=== PATIENT | female | born 1970 | race Caucasian/White ===

== ENCOUNTER 2017-02-07 11:24 | Observation (INO) | payer MEDICARE, MEDICAID ==
--- NOTE | 2017-02-07 12:12 | C.PDOC ---
History Of Present Illness 47 y/o female with Hx of HTN, DM and Fibromyalgia brought to ED by BLS with complaints of intermittent mid sternal chest pain and SOB for 2 days. Patient states she was at her physical therapist and reported she was not feeing well. Patient denies fever, chills, n/v/d or any other complaints at this time. Time Seen by Provider: 02/07/17 11:31 Chief Complaint (Nursing): Chest Pain History Per: Patient History/Exam Limitations: no limitations Onset/Duration Of Symptoms: Days Current Symptoms Are (Timing): Still Present Quality: Dull, Pressure Recent travel outside of the [place]: No Past Medical History Reviewed: Historical Data, Nursing Documentation, Vital Signs Vital Signs: Last Vital Signs Temp 98.5 F 02/07/17 16:35 Pulse 81 02/07/17 16:35 Resp 18 02/07/17 16:35 BP 127/89 02/07/17 16:35 Pulse Ox 95 02/07/17 16:35 - Medical History PMH: Diabetes, Fibromyalgia, HTN, Hypothyroidism, Mitral Valve Prolapse - Between Procedures APPLICATION OF SPLINT (02/27/14) Family History: States: Unknown Family Hx - Social History Hx Tobacco Use: No Hx Alcohol Use: No Hx Substance Use: No - Immunization History Hx Tetanus Toxoid Vaccination: No Hx Influenza Vaccination: Yes Hx Pneumococcal Vaccination: No Review Of Systems Except As Marked, All Systems Reviewed And Found Negative. Constitutional: Negative for: Fever, Chills Cardiovascular: Positive for: Chest Pain Respiratory: Positive for: Shortness of Breath Gastrointestinal: Negative for: Nausea, Vomiting, Diarrhea Physical Exam - Physical Exam Appears: Non-toxic, No Acute Distress Skin: Normal Color, Warm Head: Atraumatic, Normacephalic Oral Mucosa: Moist Neck: Normal ROM, Supple Chest: Symmetrical Cardiovascular: Rhythm Regular, No Murmur Respiratory: Normal Breath Sounds, No Rales, No Rhonchi, No Wheezing Gastrointestinal/Abdominal: Soft, No Tenderness, No Guarding, No Rebound Extremity: Normal ROM, Capillary Refill (<2 seconds) Neurological/Psych: Oriented x3, Normal Speech Gait: Steady ED Course And Treatment - Laboratory Results Result Diagrams: 02/07/17 12:03 02/07/17 12:03 Lab Interpretation: Normal ECG: Interpreted By Me ECG Rhythm: Sinus Rhythm ECG Interpretation: Normal Rate From EC O2 Sat by Pulse Oximetry: 100 (RA) Pulse Ox Interpretation: Normal - Other Rad CXR X-Ray: Interpreted by Me, Viewed By Me, Read By Radiologist Interpretation: HISTORY: SOB. COMPARISON: No prior. TECHNIQUE: Chest PA and lateral. FINDINGS: LUNGS: No active pulmonary disease. PLEURA: No significant pleural effusion identified. No pneumothorax apparent. CARDIOVASCULAR: Normal. OSSEOUS STRUCTURES: No significant abnormalities. VISUALIZED UPPER ABDOMEN: Normal. OTHER FINDINGS: None. IMPRESSION: No active disease. 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 - Scribe Statement The provider has reviewed the documentation as recorded by the Mioiblorin Gonzalez All medical record entries made by the Mioiblorin were at my direction and personally dictated by me. I have reviewed the chart and agree that the record accurately reflects my personal performance of the history, physical exam, medical decision making, and the department course for this patient. I have also personally directed, reviewed, and agree with the discharge instructions and disposition.
[2017-02-07 12:15] LABS: BASO # 0.1 K/uL (0.0-0.2); BASO % 0.6 % (0.0-2.0); EOS # 0.1 K/uL (0.0-0.7); EOS % 1.4 % (0.0-4.0); HEMOGLOBIN 11.4 g/dL (11.0-16.0); LYMPH # 3.6 K/uL (1.0-4.3); LYMPH % 37.6 % (20.0-40.0); MEAN CELL VOLUME 69.8 fL (81.0-99.0); MEAN CORPUSCULAR HEMOGLOBIN 22.4 pg (27.0-31.0); MEAN PLATELET VOLUME 8.8 fL (7.2-11.7); MONO # 0.7 K/uL (0.0-0.8); MONO % 7.2 % (0.0-10.0); NEUT # 5.1 K/uL (1.8-7.0); NEUT % 53.2 % (50.0-75.0); RBC 5.09 Mil/uL (3.80-5.20); RED CELL DISTRIBUTION WIDTH 22.4 % (11.5-14.5); WHITE BLOOD COUNT 9.7 K/uL (4.8-10.8)
[2017-02-07 12:30] LABS: ALBUMIN 3.6 g/dL (3.5-5.0)
[2017-02-07 12:32] LABS: GFR AFRICAN-AMERICAN > 60; GFR NON-AFRICAN AMERICAN > 60
[2017-02-07 12:33] LABS: ALB/GLOB RATIO 0.9 (1.0-2.1); ALT/SGPT 17 U/L (9-52); AST/SGOT 25 U/L (14-36); BLOOD UREA NITROGEN 7 mg/dL (7-17); CALCIUM 9.2 mg/dl (8.6-10.4); LIPASE 49 U/L (23-300)
[2017-02-07 12:38] LABS: CK-MB < 0.22 ng/mL (0.0-3.38)
--- NOTE | 2017-02-07 12:55 | RAD ---
HISTORY: SOB COMPARISON: No prior. TECHNIQUE: Chest PA and lateral FINDINGS: LUNGS: No active pulmonary disease. PLEURA: No significant pleural effusion identified. No pneumothorax apparent. CARDIOVASCULAR: Normal. OSSEOUS STRUCTURES: No significant abnormalities. VISUALIZED UPPER ABDOMEN: Normal. OTHER FINDINGS: None. IMPRESSION: No active disease.
[2017-02-07 13:06] LABS: SQUAMOUS EPITHIAL 37 /hpf (0-5); URINE BILIRUBIN NEGATIVE (NEGATIVE); URINE BLOOD NEGATIVE (NEGATIVE); URINE CLARITY Hazy (Clear); URINE COLOR Yellow (YELLOW); URINE GLUCOSE (UA) NORMAL (Normal); URINE LEUKOCYTE ESTERASE NEG Leu/uL (Negative); URINE NITRATE NEGATIVE (NEGATIVE); URINE PROTEIN NEGATIVE (NEGATIVE); URINE UROBILINOGEN NORMAL mg/dL (0.2-1.0)
[2017-02-07] MEDS ORDERED: Oxycodone/Acetaminophen 5/325 mg Tab PO PRN (20:55)
[2017-02-07] MEDS ORDERED: Albuterol 0.042% Inhal Sol (1.25 mg/3 mL) UD INH PRN (21:00)
[2017-02-07 21:26] LABS: CK-MB < 0.22 ng/mL (0.0-3.38)
[2017-02-08 04:20] LABS: BASO % 0.5 % (0.0-2.0); EOS # 0.1 K/uL (0.0-0.7); HEMOGLOBIN 11.1 g/dL (11.0-16.0); MEAN CORPUSCULAR HGB CONC 32.3 g/dL (33.0-37.0); MEAN PLATELET VOLUME 9.1 fL (7.2-11.7); NEUT # 4.9 K/uL (1.8-7.0); NRBC % 0.1 % (0.0-2.0); RBC 4.97 Mil/uL (3.80-5.20)
[2017-02-08 04:34] LABS: ALBUMIN 3.3 g/dL (3.5-5.0)
[2017-02-08 04:37] LABS: ALB/GLOB RATIO 0.9 (1.0-2.1); GFR AFRICAN-AMERICAN > 60; GFR NON-AFRICAN AMERICAN > 60
[2017-02-08 04:38] LABS: ALT/SGPT 18 U/L (9-52); AST/SGOT 22 U/L (14-36); BLOOD UREA NITROGEN 8 mg/dL (7-17); CALCIUM 8.9 mg/dl (8.6-10.4)
[2017-02-08 04:39] LABS: HDL CHOLESTEROL 39 mg/dL (30-70); MAGNESIUM 1.7 mg/dL (1.6-2.3)
[2017-02-08 04:42] LABS: BASO # 0.1 K/uL (0.0-0.2); EOS % 1.1 % (0.0-4.0); LYMPH # 4.7 K/uL (1.0-4.3); LYMPH % 44.8 % (20.0-40.0); MEAN CORPUSCULAR HEMOGLOBIN 22.3 pg (27.0-31.0); MONO # 0.7 K/uL (0.0-0.8); MONO % 6.5 % (0.0-10.0); NEUT % 47.1 % (50.0-75.0); RED CELL DISTRIBUTION WIDTH 21.6 % (11.5-14.5); WHITE BLOOD COUNT 10.4 K/uL (4.8-10.8)
[2017-02-08 04:49] LABS: CK-MB < 0.22 ng/mL (0.0-3.38); LDL CHOLESTEROL 115 mg/dL (0-129)
[2017-02-08] MEDS: Levothyroxine 75 MCG TAB PO SCH (06:10)
--- NOTE | 2017-02-08 11:12 | CP.PCM.PN ---
Subjective - Date & Time of Evaluation Date of Evaluation: 02/08/17 Time of Evaluation: 07:35 - Subjective Subjective: CC: chest pain x2 days, R calf pain x1 week HPI: 47 y/o female with PMHx of HTN, DM, Fibromyalgia, Hypothyroidism, Mitral Valve Prolapse - is brought to ED by BLS with complaints of intermittent mid sternal chest pain and SOB for 2 days. Most recently, patient states she was on her way to the physical therapist, walked 3 blocks, and experienced these symptoms while walking out of the elevator. The chest pain lasted several minutes, and subsided shortly after while resting. She denies radiation to her L arm or jaw. She states prior to these recent episodes, she could walk for miles without becoming SOB. She also admits to R calf tenderness that has been on/off for the past week. She attributes this to her PT sessions. Patient denies WARNER, change in vision, fevers, chills, n/v/d/c, LE edema, or any other complaints at this time. PMHx: HTN, DM, Fibromyalgia, Hypothyroidism, Mitral Valve Prolapse PSHx: herniated disks Allergy: ibuprofen, Penicillin, Tramadol Meds: see EMR FamHx- unknown SocHx- denies ETOH, tobacco, or illicit drug use Objective - Vital Signs/Intake and Output Vital Signs (last 24 hours): Temp Pulse Resp BP Pulse Ox 98.5 F 91 H 20 109/73 97 02/08/17 04:44 02/08/17 04:44 02/08/17 04:44 02/08/17 10:57 02/07/17 23:10 Intake and Output: 02/08/17 02/08/17 06:59 18:59 Intake Total 110 Balance 110 - Medications Medications: Current Medications Albuterol Sulfate (Albuterol 0.042% Inhal Nicolasa (1.25mg/3ml) Ud) 1.25 mg INH RQ6 PRN PRN Reason: Wheezing Amlodipine Besylate (Norvasc) 5 mg PO DAILY [facility] Last Admin: 02/08/17 10:56 Dose: 5 mg Aspirin (Aspirin Chewable) 81 mg PO DAILY [facility] Last Admin: 02/08/17 10:56 Dose: 81 mg Clopidogrel Bisulfate (Plavix) 75 mg PO DAILY [facility] Last Admin: 02/08/17 10:57 Dose: 75 mg Enalapril Maleate (Vasotec) 10 mg PO BID [facility] Last Admin: 02/08/17 10:57 Dose: 10 mg Gabapentin (Neurontin) 300 mg PO TID [facility] Last Admin: 02/08/17 10:56 Dose: 300 mg Heparin Sodium (Porcine) (Heparin) 5,000 units SC Q12H [facility] Last Admin: 02/08/17 10:57 Dose: 5,000 units Levothyroxine Sodium (Synthroid) 75 mcg PO DAILY@0630 [facility] Last Admin: 02/08/17 06:10 Dose: 75 mcg Metformin HCl (Glucophage) 500 mg PO BID [facility] Last Admin: 02/08/17 10:57 Dose: 500 mg Oxycodone/Acetaminophen (Percocet 5/325 Mg Tab) 1 tab PO Q8 PRN PRN Reason: Pain, moderate (4-7) Stop: 02/10/17 20:56 - Labs Labs: 02/08/17 04:45 02/08/17 04:11 - Constitutional Appears: Non-toxic, No Acute Distress - Head Exam Head Exam: ATRAUMATIC, NORMAL INSPECTION - Eye Exam Eye Exam: EOMI, Normal appearance - ENT Exam ENT Exam: Mucous Membranes Moist - Neck Exam Neck Exam: Full ROM. absent: Tenderness - Respiratory Exam Respiratory Exam: Clear to Ausculation Bilateral, NORMAL BREATHING PATTERN. absent: Chest Wall Tenderness, Rales, Rhonchi - Cardiovascular Exam Cardiovascular Exam: REGULAR RHYTHM, +S1, +S2 - GI/Abdominal Exam GI & Abdominal Exam: Soft, Normal Bowel Sounds. absent: Tenderness - Extremities Exam Extremities Exam: Normal Capillary Refill (R calf, increased tenderness with dorsiflexion), Tenderness. absent: Pedal Edema - Back Exam Back Exam: NORMAL INSPECTION. absent: CVA tenderness (L), CVA tenderness (R) - Neurological Exam Neurological Exam: Alert, Awake, CN II-XII Intact, Oriented x3 - Psychiatric Exam Psychiatric exam: Normal Affect, Normal Mood - Skin Skin Exam: Dry, Intact, Normal Color, Warm Assessment and Plan - Assessment and Plan (Free Text) Assessment: Chest Pain ASA 81 mg PO DAILY [facility] Plavix 75 mg PO DAILY [facility] Percocet 5/325 Mg Tab 1 tab PO Q8 PRN GRACE + EKG negative x3 f/u Echo cardiology consult, Dr. Askew, help appreciated. Calf Pain - Right suspect DVT DDimer 1316 H f/u LE US. HTN Norvasc 5 mg PO DAILY [facility] Vasotec 10 mg PO BID [facility] Dyspnea Albuterol Sulfate (Albuterol 0.042% Inhal Nicolasa (1.25mg/3ml) Ud) 1.25 mg INH RQ6 PRN Hypothyroidism Synthroid 75 mcg PO DAILY@0630 [facility] DM Neurontin 300 mg PO TID [facility] Glucophage 500 mg PO BID [facility] Prophylaxis Heparin 5,000 units SC Q12H [facility] Pepcid PO C/I SCDs until DVT ruled out
--- NOTE | 2017-02-08 21:39 | CP.PCM.CON ---
Past Patient History - Past Social History Smoking Status: Never Smoked - CARDIAC Hx Hypertension: Yes Hx Mitral Valve Prolapse: Yes - PULMONARY Hx Asthma: Yes - NEUROLOGICAL HX Cerebrovascular Accident: Yes (x2) - HEENT Hx HEENT Problems: No - RENAL Hx Chronic Kidney Disease: No - ENDOCRINE/METABOLIC Hx Hypothyroidism: Yes - HEMATOLOGICAL/ONCOLOGICAL Hx Blood Transfusions: No - INTEGUMENTARY Hx Dermatological Problems: No - MUSCULOSKELETAL/RHEUMATOLOGICAL Hx Falls: No Other/Comment: lupus - GASTROINTESTINAL Hx Gastrointestinal Disorders: No - GENITOURINARY/GYNECOLOGICAL Hx Genitourinary Disorders: No - PSYCHIATRIC Hx Depression: Yes Hx Substance Use: No - SURGICAL HISTORY Other/Comment: hernia surgery. - ANESTHESIA Hx Anesthesia: Yes Hx Anesthesia Reactions: No Hx Malignant Hyperthermia: No Has any member of the family had a problem w/ anesthesia?: No Meds Allergies/Adverse Reactions: Allergies Allergy/AdvReac Type Severity Reaction Status Date / Time ibuprofen Allergy Verified 02/07/17 11:31 Penicillins Allergy Verified 02/07/17 11:31 tramadol Allergy Verified 02/07/17 11:31 - Medications Medications: Current Medications Acetaminophen (Tylenol 325mg Tab) 650 mg PO Q6 PRN PRN Reason: Headache Last Admin: 02/08/17 16:48 Dose: 650 mg Albuterol Sulfate (Albuterol 0.042% Inhal Nicolasa (1.25mg/3ml) Ud) 1.25 mg INH RQ6 PRN PRN Reason: Wheezing Amlodipine Besylate (Norvasc) 5 mg PO DAILY [facility] Last Admin: 02/08/17 10:56 Dose: 5 mg Aspirin (Aspirin Chewable) 81 mg PO DAILY [facility] Last Admin: 02/08/17 10:56 Dose: 81 mg Clopidogrel Bisulfate (Plavix) 75 mg PO DAILY [facility] Last Admin: 02/08/17 10:57 Dose: 75 mg Enalapril Maleate (Vasotec) 10 mg PO BID [facility] Last Admin: 02/08/17 17:59 Dose: 10 mg Famotidine (Pepcid) 20 mg PO DAILY [facility] Gabapentin (Neurontin) 300 mg PO TID [facility] Last Admin: 02/08/17 17:59 Dose: 300 mg Heparin Sodium (Porcine) (Heparin) 5,000 units SC Q12H [facility] Last Admin: 02/08/17 10:57 Dose: 5,000 units Levothyroxine Sodium (Synthroid) 75 mcg PO DAILY@0630 [facility] Last Admin: 02/08/17 06:10 Dose: 75 mcg Metformin HCl (Glucophage) 500 mg PO BID [facility] Last Admin: 02/08/17 17:58 Dose: Not Given Oxycodone/Acetaminophen (Percocet 5/325 Mg Tab) 1 tab PO Q8 PRN PRN Reason: Pain, moderate (4-7) Stop: 02/10/17 20:56 Results - Vital Signs Recent Vital Signs: Last Vital Signs Temp 98.2 F 02/08/17 18:00 Pulse 90 02/08/17 18:00 Resp 20 02/08/17 18:00 BP 122/80 02/08/17 18:00 Pulse Ox 98 02/08/17 18:00 - Labs Result Diagrams: 02/08/17 04:45 02/08/17 04:11 Labs: Laboratory Results - last 24 hr 02/07/17 02/08/17 02/08/17 22:57 04:11 04:11 WBC RBC Hgb Hct MCV MCH MCHC RDW Plt Count MPV Neut % (Auto) Lymph % (Auto) [place] % (Auto) Eos % (Auto) Baso % (Auto) Neut # Lymph # [place] # Eos # Baso # Differential Comment D-Dimer, Quantitative Sodium 138 Potassium 3.8 Chloride 106 Carbon Dioxide 24 Anion Gap 12 BUN 8 Creatinine 0.8 Est GFR ( Amer) > 60 Est GFR (Non-Af Amer) > 60 POC Glucose (mg/dL) Random Glucose 100 Hemoglobin A1c 6.0 Calcium 8.9 Phosphorus 4.3 Magnesium 1.7 Total Bilirubin 0.5 AST 22 ALT 18 Alkaline Phosphatase 71 Total Creatine Kinase CK-MB (Mass) Troponin I, Quant Total Protein 7.1 Albumin 3.3 L Globulin 3.8 Albumin/Globulin Ratio 0.9 L Triglycerides 72 Cholesterol 176 LDL Cholesterol Direct 115 HDL Cholesterol 39 Free T4 TSH 3rd Generation 0.72 Urine HCG, Qual Negative 02/08/17 02/08/17 02/08/17 04:11 04:11 04:45 WBC 10.4 RBC 4.97 Hgb 11.1 Hct 34.3 MCV 69.0 L MCH 22.3 L MCHC 32.3 L RDW 21.6 H Plt Count 263 MPV 9.1 Neut % (Auto) 47.1 L Lymph % (Auto) 44.8 H [place] % (Auto) 6.5 Eos % (Auto) 1.1 Baso % (Auto) 0.5 Neut # 4.9 Lymph # 4.7 H [place] # 0.7 Eos # 0.1 Baso # 0.1 Differential Comment D-Dimer, Quantitative Sodium Potassium Chloride Carbon Dioxide Anion Gap BUN Creatinine Est GFR ( Amer) Est GFR (Non-Af Amer) POC Glucose (mg/dL) Random Glucose Hemoglobin A1c Calcium Phosphorus Magnesium Total Bilirubin AST ALT Alkaline Phosphatase Total Creatine Kinase 60 CK-MB (Mass) < 0.22 Troponin I, Quant < 0.0120 Total Protein Albumin Globulin Albumin/Globulin Ratio Triglycerides Cholesterol LDL Cholesterol Direct HDL Cholesterol Free T4 1.08 TSH 3rd Generation Urine HCG, Qual 02/08/17 02/08/17 02/08/17 06:11 11:20 11:55 WBC RBC Hgb Hct MCV MCH MCHC RDW Plt Count MPV Neut % (Auto) Lymph % (Auto) [place] % (Auto) Eos % (Auto) Baso % (Auto) Neut # Lymph # [place] # Eos # Baso # Differential Comment D-Dimer, Quantitative 1316 H Sodium Potassium Chloride Carbon Dioxide Anion Gap BUN Creatinine Est GFR ( Amer) Est GFR (Non-Af Amer) POC Glucose (mg/dL) 100 103 Random Glucose Hemoglobin A1c Calcium Phosphorus Magnesium Total Bilirubin AST ALT Alkaline Phosphatase Total Creatine Kinase CK-MB (Mass) Troponin I, Quant Total Protein Albumin Globulin Albumin/Globulin Ratio Triglycerides Cholesterol LDL Cholesterol Direct HDL Cholesterol Free T4 TSH 3rd Generation Urine HCG, Qual 02/08/17 02/08/17 16:10 21:09 WBC RBC Hgb Hct MCV MCH MCHC RDW Plt Count MPV Neut % (Auto) Lymph % (Auto) [place] % (Auto) Eos % (Auto) Baso % (Auto) Neut # Lymph # [place] # Eos # Baso # Differential Comment D-Dimer, Quantitative Sodium Potassium Chloride Carbon Dioxide Anion Gap BUN Creatinine Est GFR ( Amer) Est GFR (Non-Af Amer) POC Glucose (mg/dL) 96 117 H Random Glucose Hemoglobin A1c Calcium Phosphorus Magnesium Total Bilirubin AST ALT Alkaline Phosphatase Total Creatine Kinase CK-MB (Mass) Troponin I, Quant Total Protein Albumin Globulin Albumin/Globulin Ratio Triglycerides Cholesterol LDL Cholesterol Direct HDL Cholesterol Free T4 TSH 3rd Generation Urine HCG, Qual
[2017-02-09] MEDS: Levothyroxine 75 MCG TAB PO SCH (05:50)
--- NOTE | 2017-02-09 06:09 | CARD ---
APPROVED REPORT EXAM: Two-dimensional and M-mode echocardiogram with Doppler and color Doppler. INDICATION Dyspnea Chest Pain RISK FACTORS Hypertension Diabetes M-Mode DIMENSIONS RVDd2.03 (2.1-3.2cm)Left Atrium (MM)3.89 (2.5-4.0cm) IVSd0.94 (0.7-1.1cm)Aortic Root2.28 (2.2-3.7cm) LVDd4.46 (4.0-5.6cm)Aortic Cusp Exc.1.70 (1.5-2.0cm) PWd0.91 (0.7-1.1cm)FS (%) 28 % LVDs3.22 (2.0-3.8cm)LVEF (%)54 (>50%) Mitral Valve MV E Osxeshtn35.8cm/sMV A Ecaazgjw16.1cm/sE/A ratio0.9 TDI E/Lateral E'0.0E/Medial E'0.0 Tricuspid Valve TR Peak Jowzvvdg781jl/sTR Peak Gr.[id number] LEFT VENTRICLE The left ventricle is normal size. There is normal left ventricular wall thickness. The left ventricular function is normal. The left ventricular ejection fraction is within the normal range. The Ejection Fraction is >55%. No regional wall motion abnormalities noted. The left ventricular diastolic function is normal. No left ventricle thrombus noted on this study. There is no ventricular septal defect visualized. There is no left ventricular aneurysm. There is no mass noted in the left ventricle. RIGHT VENTRICLE The right ventricle is normal size. There is normal right ventricular wall thickness. The right ventricular systolic function is normal. ATRIA The left atrium size is normal. The right atrium size is normal. The interatrial septum is intact with no evidence for an atrial septal defect. AORTIC VALVE The aortic valve is normal in structure and function. No aortic regurgitation is present. There is no aortic valvular stenosis. There is no aortic valvular vegetation. MITRAL VALVE The mitral valve is normal in structure and function. There is no evidence of mitral valve prolapse. There is no mitral valve stenosis. There is no mitral valve regurgitation noted. TRICUSPID VALVE The tricuspid valve is normal in structure and function. There is trace tricuspid regurgitation. There is no tricuspid valve prolapse or vegetation. There is no tricuspid valve stenosis. PULMONIC VALVE The pulmonary valve is normal in structure and function. There is no pulmonic valvular regurgitation. There is no pulmonic valvular stenosis. GREAT VESSELS The aortic root is normal in size. The ascending aorta is normal in size. The pulmonary artery is normal. The IVC is normal in size and collapses >50% with inspiration. PERICARDIAL EFFUSION The pericardium appears normal. There is no pleural effusion. <Conclusion> The left ventricle is normal size. There is normal left ventricular wall thickness. The left ventricular ejection fraction is within the normal range. The Ejection Fraction is >55%. There is trace tricuspid regurgitation.
--- NOTE | 2017-02-09 06:38 | CARD ---
APPROVED REPORT EKG Measurement Heart [id number] <Conclusion> Sinus rhythm with blocked premature atrial complexes Otherwise normal ECG
[2017-02-09] MEDS ORDERED: Aminophylline 25 mg/ml Inj ONE (07:17)
[2017-02-09 07:37] LABS: BASO # 0.1 K/uL (0.0-0.2); BASO % 0.9 % (0.0-2.0); EOS # 0.1 K/uL (0.0-0.7); EOS % 1.4 % (0.0-4.0); HEMOGLOBIN 10.9 g/dL (11.0-16.0); LYMPH # 3.8 K/uL (1.0-4.3); LYMPH % 37.1 % (20.0-40.0); MEAN CELL VOLUME 69.3 fL (81.0-99.0); MEAN CORPUSCULAR HEMOGLOBIN 22.6 pg (27.0-31.0); MEAN CORPUSCULAR HGB CONC 32.6 g/dL (33.0-37.0); MONO % 9.5 % (0.0-10.0); NEUT # 5.2 K/uL (1.8-7.0); NEUT % 51.1 % (50.0-75.0); NRBC % 0.1 % (0.0-2.0); RBC 4.84 Mil/uL (3.80-5.20); RED CELL DISTRIBUTION WIDTH 22.5 % (11.5-14.5); WHITE BLOOD COUNT 10.2 K/uL (4.8-10.8)
[2017-02-09 08:19] LABS: ALBUMIN 3.3 g/dL (3.5-5.0)
[2017-02-09 08:22] LABS: ALB/GLOB RATIO 0.8 (1.0-2.1); AST/SGOT 29 U/L (14-36); GFR AFRICAN-AMERICAN > 60; GFR NON-AFRICAN AMERICAN > 60
[2017-02-09 08:23] LABS: ALT/SGPT 16 U/L (9-52); BLOOD UREA NITROGEN 10 mg/dL (7-17); MAGNESIUM 1.7 mg/dL (1.6-2.3)
[2017-02-09 11:22] VITALS: RESP 18
[2017-02-09] MEDS ORDERED: Lidocaine 5% Patch TD SCH (12:30)
--- NOTE | 2017-02-09 13:39 | CARD ---
APPROVED REPORT Protocol: LEXISCAN Test Type: LEXISCAN STRESS Test Indications: CP Target HR: 171 bpm Resting ECG: normal Resting Heart Rate: 91 bpm Resting Blood Pressure: 128/80mmHg submaximum (85%): 145 bpm TEST SUMMARY PREINFSNHYPERV.31:[id number]/80.0. INFUSIONDOSE 100:300.00.01.093/.0. [id number]/80.0. PROCEDURE Pharmacologic stress testing was performed using 0.4mg per 5ml of regadenoson given intravenously over 7-10 seconds. POST EXERCISE Reason for Termination: Lexiscan protocol completed Target HR: No Max HR: 93 bpm 76% of Maximum Predicted HR: 171 bpm Exercise duration: 00:30 min:sec, 0 Stage Exercise capacity: 1.0METs Max Blood Pressure: 128/80mmHg Blood Pressure response to exercise: normal resting BP - appropriate response Heart Rate response to exercise: appropriate Chest Pain: No, none Angina index: 0 Arrhythmia: No, none ST Change: No, none Deviation: 0 mm INTERPRETATION Stress EKG Conclusion: Nuclear report to follow EXAM: Myocardial Perfusion REST/STRESS Imaging Protocol The imaging protocol used to acquire images was Rest Tc-99m/stress Tc-99m 1 day Rest Spect myocardial perfusion imaging was performed in supine position 45 minutes following the injection of 13 mCi of Tc-99 Myoview. Gated Stress Spect was performed 43 minutes after intravenous 30.9 mCi Tc-99 Myoview injection. The images were gated to evaluate regional wall motion and calculate ventricular ejection fraction.Images were reconstructed using backfilter projection method in short horizontal and verticle long axis. Spect slices were generated. RESTING DATA EDV73.82qxTT7.70L/min ESV30.00mlMyocardial Nlaj183.00g Av. Heart Rate87.00bpm EF59.00% STRESS DATA EDV70.59nwOC5.90L/min ESV17.00mlMyocardial Xswq009.00g EF76.00% Regional WT score at stress:0.00 Regional WM score at stress:0.00 Summed WT score at stress:7.00 Av. Heart Rate93.00bpmSummed WM score at stress:0.00 LV Perf. Quant 17 Seg. SSS0.00 17 Seg. SRS2.00 17 Seg. SDS0.00 Stress Defect Extent (% LAD)0.00Rest Defect Extent (% LAD)0.00Rev. Defect Extent (% LAD)0.00 Stress Defect Extent (% LCX)0.00Rest Defect Extent (% LCX)18.80Rev. Defect Extent (% LCX)0.00 Stress Defect Extent (% RCA)0.00Rest Defect Extent (% RCA)0.00Rev. Defect Extent (% RCA)0.00 Stress Defect Extent (% JAISON)0.00Rest Defect Extent (% JAISON)6.10Rev. Defect Extent (% JAISON)0.00 Other Information Quality:Good IMPRESSION Normal Myocardial Perfusion exercise stress study Left Ventricle LV Function:Left ventricle ejection fraction is normal. The Ejection Fraction is >55%. Conclusion 1. Normal Lexiscan nuclear stress test
--- NOTE | 2017-02-09 13:49 | CP.PCM.PN ---
Subjective - Date & Time of Evaluation Date of Evaluation: 02/09/17 Time of Evaluation: 10:00 - Subjective Subjective: PGY2 Medicine Note- Dr. Farmer's service Patient seen and examined. Patient s/p stress test with Dr. Askew. Patient reports chest pain has resolved. Patient still with complaint of right leg swelling and right calf pain. Objective - Vital Signs/Intake and Output Vital Signs (last 24 hours): Temp Pulse Resp BP Pulse Ox 98.0 F 89 18 122/82 97 02/09/17 11:21 02/09/17 11:21 02/09/17 11:21 02/09/17 11:31 02/09/17 11:21 - Medications Medications: Current Medications Acetaminophen (Tylenol 325mg Tab) 650 mg PO Q6 PRN PRN Reason: Headache Last Admin: 02/09/17 00:04 Dose: 650 mg Albuterol Sulfate (Albuterol 0.042% Inhal Nicolasa (1.25mg/3ml) Ud) 1.25 mg INH RQ6 PRN PRN Reason: Wheezing Amlodipine Besylate (Norvasc) 5 mg PO DAILY [facility] Last Admin: 02/09/17 11:30 Dose: 5 mg Aspirin (Aspirin Chewable) 81 mg PO DAILY [facility] Last Admin: 02/09/17 11:30 Dose: 81 mg Clopidogrel Bisulfate (Plavix) 75 mg PO DAILY [facility] Last Admin: 02/09/17 11:30 Dose: 75 mg Enalapril Maleate (Vasotec) 10 mg PO BID [facility] Last Admin: 02/09/17 11:31 Dose: 10 mg Famotidine (Pepcid) 20 mg PO DAILY [facility] Last Admin: 02/09/17 11:29 Dose: 20 mg Gabapentin (Neurontin) 300 mg PO TID [facility] Last Admin: 02/09/17 13:21 Dose: 300 mg Heparin Sodium (Porcine) (Heparin) 5,000 units SC Q12H [facility] Last Admin: 02/09/17 11:32 Dose: 5,000 units Levothyroxine Sodium (Synthroid) 75 mcg PO DAILY@0630 [facility] Last Admin: 02/09/17 05:50 Dose: 75 mcg Lidocaine (Lidoderm) 1 ea TD DAILY [facility] Last Admin: 02/09/17 13:21 Dose: 1 ea Metformin HCl (Glucophage) 500 mg PO BID [facility] Last Admin: 02/09/17 11:15 Dose: Not Given Oxycodone/Acetaminophen (Percocet 5/325 Mg Tab) 1 tab PO Q8 PRN PRN Reason: Pain, moderate (4-7) Stop: 02/10/17 20:56 - Labs Labs: 02/09/17 07:11 02/09/17 07:11 - Constitutional Appears: Non-toxic, No Acute Distress - Head Exam Head Exam: ATRAUMATIC, NORMOCEPHALIC - Eye Exam Eye Exam: EOMI - ENT Exam ENT Exam: Mucous Membranes Moist - Respiratory Exam Respiratory Exam: Decreased Breath Sounds, Clear to Ausculation Bilateral, NORMAL BREATHING PATTERN. absent: Chest Wall Tenderness - Cardiovascular Exam Cardiovascular Exam: +S1, +S2 - GI/Abdominal Exam GI & Abdominal Exam: Soft, Normal Bowel Sounds. absent: Tenderness - Extremities Exam Additional comments: right calf tender on palpation bilateral lower extremity swelling, right greater than left straight leg raise right leg produces lumbar pain - Neurological Exam Neurological Exam: Alert, Awake - Psychiatric Exam Psychiatric exam: Normal Affect - Skin Skin Exam: Dry, Warm Assessment and Plan - Assessment and Plan (Free Text) Assessment: Chest Pain ASA 81 mg PO DAILY [facility] Plavix 75 mg PO DAILY [facility] Percocet 5/325 Mg Tab 1 tab PO Q8 PRN GRACE + EKG negative x3 Echo- LV normal size, EF > 55%, trace tricuspid regurg cardiology consult, Dr. Askew, help appreciated- stress test performed 02/09/17 Normal myocardial perfusion exercise stress study Normal lexiscan nuclear stress test EF > 55% Elevated D-dimer DDimer 1316 H lower extremity doppler- no DVT in visualized veins, b/l peroneal veins not visualized will try lidocaine patch for calf pain, patient reports lower back pain with straight leg raise, has history back pain will check CTA to rule out PE HTN Norvasc 5 mg PO DAILY [facility] Vasotec 10 mg PO BID [facility] Dyspnea Albuterol Sulfate (Albuterol 0.042% Inhal Nicolasa (1.25mg/3ml) Ud) 1.25 mg INH RQ6 PRN Hypothyroidism Synthroid 75 mcg PO DAILY@0630 [facility] DM Neurontin 300 mg PO TID [facility] Glucophage 500 mg PO BID [facility] Prophylaxis Heparin 5,000 units SC Q12H [facility] Pepcid PO C/I SCDs until DVT ruled out All medical management as per Dr. Farmer Discharge pending CTA
[2017-02-09] MEDS ORDERED: Iodixanol 320 MG/ML 100 ML BOTTLE IV ONE (14:39)
--- NOTE | 2017-02-09 15:17 | VASCLAB ---
PROCEDURE: Lower Extremity Venous Duplex Exam. HISTORY: R>L calf pain; +Ddimer 1316 PRIORS: None. TECHNIQUE: Bilateral common femoral, femoral, popliteal and posterior tibial, peroneal and great saphenous veins were evaluated. Flow was assessed with color Doppler, compressibility, assessment of phasic flow and augmentation response. Report prepared by NATHAN Santos FINDINGS: RIGHT: 1. Common Femoral Vein: 1.1. Compressibility - Fully compressible: Thrombus - None : Flow - Phasic: Augmentation -Normal: Reflux - None. 2. Femoral Vein: 2.1. Compressibility - Fully compressible: Thrombus - None : Flow - Phasic: Augmentation -Normal: Reflux - None. 3. Popliteal Vein: 3.1. Compressibility - Fully compressible: Thrombus - None : Flow - Phasic: Augmentation -Normal: Reflux - None. 4. Posterior Tibial Vein: 4.1. Compressibility - Fully compressible: Thrombus - None: Flow - Phasic: Augmentation -Normal: Reflux - None. 5. Peroneal Vein: 5.1. Not visualized 6. Great Saphenous Vein: 6.1. Compressibility - Fully compressible: Thrombus - None: Flow - Phasic: Augmentation - Normal: Reflux - None. LEFT: 1. Common Femoral Vein: 1.1. Compressibility - Fully compressible: Thrombus - None: Flow - Phasic: Augmentation -Normal: Reflux - None. 2. Femoral Vein: 2.1. Compressibility - Fully compressible: Thrombus - None: Flow - Phasic: Augmentation -Normal: Reflux - None. 3. Popliteal Vein: 3.1. Compressibility - Fully compressible: Thrombus - None : Flow - Phasic: Augmentation -Normal: Reflux - None. 4. Posterior Tibial Vein: 4.1. Compressibility - Fully compressible: Thrombus - None: Flow - Phasic: Augmentation -Normal: Reflux - None. 5. Peroneal Vein: 5.1. Not visualized 6. Great Saphenous Vein: 6.1. Compressibility - Fully compressible: Thrombus - None: Flow - Phasic: Augmentation - Normal: Reflux - None. OTHER FINDINGS: Right: None significant. Left: None significant. IMPRESSION: 1. No evidence of deep or superficial vein thrombosis of the examined veins, bilaterally. 2. Bilateral peroneal veins could not be visualized due to swelling, otherwise normal exam.
--- NOTE | 2017-02-09 15:41 | CT ---
PROCEDURE: CT Chest with contrast (Pulmonary Angiogram) HISTORY: Elevated D-dimer COMPARISON: Comparison made with prior chest radiograph dated 02/07/2017 TECHNIQUE: Helical/transaxial computed tomography images were obtained of the chest in the pulmonary arterial phase of enhancement. Coronal and sagittal reformatted images were created and reviewed. Intravenous contrast dose: 100 cc Visipaque 320 contrast material Radiation dose: Total exam DLP = 566.71 mGy-cm. This CT exam was performed using one or more of the following dose reduction techniques: Automated exposure control, adjustment of the mA and/or kV according to patient size, and/or use of iterative reconstruction technique. . Note that examination is somewhat limited due to very large body habitus and suboptimal bolus injection/tiny. FINDINGS: PULMONARY ARTERIES: The visualized pulmonary trunk, right and left main, lobar, segmental and proximal subsegmental branches of the pulmonary arteries are well opacified with no definitive filling defects seen to suggest acute pulmonary embolus. Pulmonary trunk measures approximately 1.95 cm. AORTA: The ascending thoracic measures approximately 2.15 cm and descending thoracic aorta 2.02. LUNGS: . No focal consolidation however there appears to be some minor atelectasis and or scarring changes of right posterior sulcus abutting the posterior pleural surface. . There also appears to be a very tiny approximately 1.7 mm pleural-based nodular density in the right lower lobe seen on axial image number 65 series 4. PLEURAL SPACES: No effusion or pneuomothorax. HEART: Heart size is within range of normal. There is mild left ventricular hypertrophy. No evidence of significant pericardial effusion identified. LYMPH NODES: No significant mediastinal or hilar adenopathy BONES, CHEST WALL: The thoracic vertebral bodies appear intact. There are no acute compression fractures no retropulsed fragments. Minor multilevel degenerative spondylosis. OTHER FINDINGS: Small hiatal hernia. . Central airways are midline and patent. No endobronchial lesion seen. Note is made of a small approximately 6.4 mm round/elliptical shaped low-attenuation focus anterior superior margin right lobe liver best seen on axial series 3 image number 75- 78. This is too small to characterize though could represent a probably represents a small cyst based on Hounsfield units in the low double digits. Followup interval could performed to assess stability. IMPRESSION: No evidence of acute central pulmonary embolus. You Tiny 1.7 mm pleural-based nodular density right lower lobe along the posterolateral convexity. Followup in 6 months could be performed if clinically indicated. . Probable small cyst superior aspect right lobe liver near the diaphragmatic dome. Followup interval could be performed to assess stability.
[2017-02-09 15:51] VITALS: PULSE 108; TEMP 97.4; O2SAT 98
[2017-02-09 18:01] VITALS: BP 114/72
--- NOTE | 2017-02-10 06:48 | CARD ---
APPROVED REPORT EKG Measurement Heart [id number] <Conclusion> Normal sinus rhythm Normal ECG
--- NOTE | 2017-02-15 07:28 | CARD ---
APPROVED REPORT EKG Measurement Heart [id number] <Conclusion> Normal sinus rhythm Normal ECG
--- NOTE | 2017-03-05 18:24 | HP ---
HISTORY OF PRESENT ILLNESS: The patient has a chief complaint of generalized fatigue and tiredness. The patient came to the hospital for admission. PHYSICAL EXAMINATION GENERAL: The patient awake, alert, and oriented. VITAL SIGNS: Temperature 98, pulse 90. HEENT: Within normal limits. NECK: Supple. CHEST: Symmetrical. HEART: Regular. ABDOMEN: Soft. EXTREMITIES: No edema. IMPRESSION AND PLAN: The patient advised rest and supportive care. Mikael Farmer MD <
== END 2017-02-09 18:38 | disposition home or self-care (01) ==
LOC: C.ER 11:24 → C.9E 14:02 → C.6T 15:32
PROVIDERS: ADMIT Internal Medicine Pulmonary Disease; ATTEND Internal Medicine Pulmonary Disease
DX: R07.2 Precordial pain (principal); I10 Essential (primary) hypertension; E11.9 Type 2 diabetes mellitus without complications; Z79.4 Long term (current) use of insulin; R06.00 Dyspnea, unspecified; E03.9 Hypothyroidism, unspecified; J45.909 Unspecified asthma, uncomplicated; Z79.82 Long term (current) use of aspirin; M79.7 Fibromyalgia
CPT/HCPCS: 36415; 71020; 71275; 78452; 80053; 80061; 81001; 82553; 82948; 83036; 83690; 83735; 84100; 84439; 84443; 84484; 84703; 85025; 85378; 93005; 93017; 93306; 93970; 99285; A9502; G0378; J1644; J2785; Q9967

== ENCOUNTER 2018-09-15 16:22 | Emergency (ER) | payer MEDICARE, MEDICAID ==
[2018-09-15 16:45] VITALS: O2SAT 100
[2018-09-15 17:43] LABS: HEMOGLOBIN 11.5 g/dL (11.0-16.0); MEAN CORPUSCULAR HGB CONC 31.7 g/dL (33.0-37.0); WHITE BLOOD COUNT 11.8 K/uL (4.8-10.8)
[2018-09-15 17:47] LABS: MEAN CELL VOLUME 70.5 fL (81.0-99.0); MEAN CORPUSCULAR HEMOGLOBIN 22.4 pg (27.0-31.0); MEAN PLATELET VOLUME 8.7 fL (7.2-11.7); PLATELET COUNT 297 K/uL (130-400); RBC 5.14 Mil/uL (3.80-5.20); RED CELL DISTRIBUTION WIDTH 20.4 % (11.5-14.5)
[2018-09-15 17:54] LABS: INR 1.3; PROTHROMBIN TIME 14.4 SECONDS (9.7-12.2)
[2018-09-15 18:06] LABS: ALB/GLOB RATIO 1.2 (1.0-2.1); ALBUMIN 4.2 g/dL (3.5-5.0); ALT/SGPT 14 U/L (9-52); AST/SGOT 24 U/L (14-36); BLOOD UREA NITROGEN 6 mg/dL (7-17); GFR NON-AFRICAN AMERICAN > 60
--- NOTE | 2018-09-15 18:16 | RAD ---
Date of service: 09/15/2018 HISTORY: CP COMPARISON: Chest radiographs 02/07/2017. FINDINGS: LUNGS: No active pulmonary disease. PLEURA: No significant pleural effusion identified, no pneumothorax apparent. CARDIOVASCULAR: No aortic atherosclerotic calcification present. Normal cardiac size. No pulmonary vascular congestion. OSSEOUS STRUCTURES: No significant abnormalities. VISUALIZED UPPER ABDOMEN: Normal. OTHER FINDINGS: None. IMPRESSION: No interval acute cardiopulmonary disease appreciated.
--- NOTE | 2018-09-15 18:27 | C.PDOC ---
History Of Present Illness 48 year old female presents to the ED complaining of right calf pain ongoing for the last 4 days and chest pain that began today. Reports chest pain is associated with shortness of breath and lightheadedness. Chest pain is sharp and pleuritic. Denies diaphoresis, fever, chills, nausea, vomiting, diarrhea, headache, or any other symptoms. Time Seen by Provider: 09/15/18 16:32 Chief Complaint (Nursing): Chest Pain History Per: Patient History/Exam Limitations: no limitations Onset/Duration Of Symptoms: Hrs Current Symptoms Are (Timing): Still Present Quality: Sharp Associated Symptoms: Dyspnea, Other (lightheadedness) Past Medical History Reviewed: Historical Data, Nursing Documentation, Vital Signs Vital Signs: Last Vital Signs Temp 99.0 F 09/15/18 16:51 Pulse 87 09/15/18 18:15 Resp 20 09/15/18 18:15 BP 142/92 H 09/15/18 18:15 Pulse Ox 100 09/15/18 18:15 - Medical History PMH: Asthma, Depression, Diabetes, Fibromyalgia, HTN, Hypothyroidism, Mitral Valve Prolapse Denies: Chronic Kidney Disease Surgical History: No Surg Hx - [facility] Procedures APPLICATION OF SPLINT (02/27/14) Family History: States: No Known Family Hx - Social History Hx Tobacco Use: No Hx Alcohol Use: Yes Hx Substance Use: No - Immunization History Hx Tetanus Toxoid Vaccination: No Hx Influenza Vaccination: Yes Hx Pneumococcal Vaccination: No Review Of Systems Except As Marked, All Systems Reviewed And Found Negative. Constitutional: Negative for: Fever, Chills Cardiovascular: Positive for: Chest Pain, Light Headedness Respiratory: Positive for: Shortness of Breath Gastrointestinal: Negative for: Nausea, Vomiting, Diarrhea Musculoskeletal: Positive for: Other (right calf pain ) Neurological: Negative for: Headache Physical Exam - Physical Exam Appears: Non-toxic Skin: Warm, Dry, No Rash Head: Normacephalic Eye(s): bilateral: Normal Inspection Nose: Normal Oral Mucosa: Moist Neck: Supple Chest: Symmetrical Cardiovascular: Rhythm Regular Respiratory: Normal Breath Sounds, No Rales, No Rhonchi, No Wheezing Extremity: Tenderness (right calf ), No Deformity, No Swelling Extremity: Bilateral: Normal Color And Temperature, Normal ROM Pulses: Left Dorsalis Pedis: Normal, Right Dorsalis Pedis: Normal Neurological/Psych: Oriented x3, Normal Speech Gait: Steady ED Course And Treatment - Laboratory Results Result Diagrams: 09/15/18 17:36 09/15/18 17:36 Lab Results: PT 14.4 SECONDS (9.7-12.2) H 09/15/18 17:36 INR 1.3 09/15/18 17:36 APTT 29 SECONDS (21-34) 09/15/18 17:36 D-Dimer, Quantitative 676 ng/mlDDU (0-243) H 09/15/18 17:36 Total Bilirubin 0.3 mg/dL (0.2-1.3) 09/15/18 17:36 AST 24 U/L (14-36) 09/15/18 17:36 ALT 14 U/L (9-52) 09/15/18 17:36 Alkaline Phosphatase 74 U/L (38-126) 09/15/18 17:36 Total Protein 7.7 g/dL (6.3-8.3) 09/15/18 17:36 Albumin 4.2 g/dL (3.5-5.0) 09/15/18 17:36 Globulin 3.5 gm/dL (2.2-3.9) 09/15/18 17:36 Albumin/Globulin Ratio 1.2 (1.0-2.1) 09/15/18 17:36 ECG: Interpreted By Me, Viewed By Me ECG Rhythm: Sinus Tachycardia ECG Interpretation: No Acute Changes Rate From EC O2 Sat by Pulse Oximetry: 100 (RA) Pulse Ox Interpretation: Normal Progress Note: EKG and CXR ordered. Venous duplex scan for right lower ext ordered. Blood collected and sent to the lab for analysis. Dimer is elevated. CTA chest ordered to r/o PE. Disposition - Disposition Disposition Time: 19:00 Condition: FAIR Forms: [facility] (Pashto) - Clinical Impression Clinical Impression: Chest pain - PA / [employer]PL[employer] PIL[employer] / Resident Statement MD/DO has reviewed & agrees with the documentation as recorded. - Scribe Statement The provider has reviewed the documentation as recorded by the Scribe Olivia Domínguez All medical record entries made by the Scribe were at my direction and perso tanya dictated by me. I have reviewed the chart and agree that the record accurately reflects my personal performance of the history, physical exam, medical decision making, and the department course for this patient. I have also personally directed, reviewed, and agree with the discharge instructions and disposition. Physician Patient Turnover Patient Signed Over To: Lj Van DO Handoff Comments: pending CTA chest to r/o PE and dispo accordingly
[2018-09-15 18:47] LABS: CK-MB < 0.22 ng/mL (0.0-3.38)
[2018-09-15 19:05] LABS: ANISOCYTOSIS SLIGHT; HYPOCHROMIC SLIGHT; LYMPHOCYTE 27 % (20-40); MICROCYTOSIS SLIGHT; MONOCYTE 4 % (0-10); NEUTROPHIL 64 % (50-75); PLATELET ESTIMATE NORMAL (NORMAL); POIKILOCYTOSIS SLIGHT; REACTIVE LYMPHOCYTES 5 % (0-0); TARGET CELLS SLIGHT; TOTAL CELLS COUNTED 100
[2018-09-15 19:09] LABS: LYMPH # 3.8 K/uL (1.0-4.3); MONO # 0.4 K/uL (0.0-0.8); NEUT # 7.6 K/uL (1.8-7.0)
[2018-09-15] MEDS ORDERED: Iodixanol 320 MG/ML 100 ML BOTTLE IV ONE (19:38)
[2018-09-15 21:27] VITALS: BP 140/87; PULSE 82; RESP 16; TEMP 98.8
--- NOTE | 2018-09-16 10:45 | CT ---
Date of service: 09/15/2018 CTA chest PE protocol Indication: pleuritic chest pain, elevated d dimer Technique: Contiguous axial images were obtained through the chest with intravenous contrast enhancement. Sagittal and coronal reconstructions were generated and reviewed. This CT exam was performed using 1 or more of the following dose reduction techniques: Automated exposure control, adjustment of the MAA and/or kV according to patient size, and/or use of iterative reconstruction technique. IV contrast: 100 mL Visipaque 320 IV Radiation dose (DLP): 544.29 MGy-cm. Comparison: Chest x-ray performed 09/15/18 Findings: Visualized portions of the inferior thyroid gland appear unremarkable. The mediastinal and hilar vascular structures appear within normal limits. The heart appears within normal limits of size. Small pericardial effusion. Bilateral filling defects within bilateral lobe branches worrisome for acute versus chronic pulmonary emboli (for example series 2, image 96 and 98) No focal consolidation. No pleural effusion. No pneumothorax. Limited visualized portions of the upper abdomen: 11 mm hepatic dome hypodensity. Small hiatal hernia. Mild degenerative changes. Impression: Filling defects within lower lobe segmental branches may reflect acute versus chronic pulmonary emboli. Small pericardial effusion. Re-identified hepatic dome hypodensity measures approximately 11 mm, incompletely characterized on this study. Findings discussed with Dr. Waterman on 09/16/18 at 10:34 a.m.
--- NOTE | 2018-09-17 09:55 | CARD ---
APPROVED REPORT Date of service: 09/15/2018 EKG Measurement Heart [id number] <Conclusion> Normal sinus rhythm Normal ECG
== END 2018-09-15 21:30 | disposition home or self-care (01) ==
LOC: C.ER 16:22
DX: R07.9 Chest pain, unspecified (principal)
CPT/HCPCS: 71045; 71275; 80053; 81025; 82550; 82553; 84484; 85025; 85378; 85610; 85730; 93005; 99284; Q9967

== ENCOUNTER 2018-09-16 14:26 | Inpatient (IN) | payer MEDICARE, MEDICAID ==
[2018-09-16 14:49] VITALS: BMI 39.6
--- NOTE | 2018-09-16 15:05 | C.PDOC ---
History Of Present Illness 48 y/o female presents to the ER for follow up of PE study which was performed while she was in the ER yesterday. Patient was evaluated for right calf tenderness, chest pain, shortness of breath, and palpitations in the ER yesterday. At the time, patient had labwork which showed elevated D-Dimer levels and CTA which negative for PE. However, radiology reexamined the CTA and they determined that there were finding consistent with acute or chronic PE. Patient was informed and has returned to the ER for further evaluation. Currently, patient is complaining of right calf tenderness and palpitations. Denies having CP, SOB, fever, chills, nausea, and vomiting. Time Seen by Provider: 09/16/18 14:39 Chief Complaint (Nursing): Medical Clearance History Per: Patient History/Exam Limitations: no limitations Onset/Duration Of Symptoms: Days Current Symptoms Are (Timing): Still Present Severity: Moderate Past Medical History Reviewed: Historical Data, Nursing Documentation, Vital Signs Vital Signs: Last Vital Signs Temp 99.9 F H 09/16/18 14:49 Pulse 122 H 09/16/18 14:49 Resp 20 09/16/18 14:49 BP 159/101 H 09/16/18 14:49 Pulse Ox 98 09/16/18 14:49 - Medical History PMH: Asthma, Depression, Diabetes, Fibromyalgia, HTN, Hypothyroidism, Mitral Valve Prolapse Denies: Chronic Kidney Disease Other Surgeries: Hx of surgeries - [facility] Procedures APPLICATION OF SPLINT (02/27/14) Family History: States: No Known Family Hx - Social History Hx Tobacco Use: No Hx Alcohol Use: Yes Hx Substance Use: No - Immunization History Hx Tetanus Toxoid Vaccination: No Hx Influenza Vaccination: No Hx Pneumococcal Vaccination: No Review Of Systems Except As Marked, All Systems Reviewed And Found Negative. Constitutional: Negative for: Fever, Chills Cardiovascular: Positive for: Palpitations. Negative for: Chest Pain Respiratory: Negative for: Shortness of Breath Gastrointestinal: Negative for: Nausea, Vomiting Musculoskeletal: Positive for: Other (right calf pain) Physical Exam - Physical Exam Appears: Non-toxic, No Acute Distress, Other (awake,alert, very active) Skin: Normal Color, Warm, Dry Head: Atraumatic, Normacephalic Eye(s): bilateral: Normal Inspection Nose: Normal Oral Mucosa: Moist Neck: Supple Chest: Symmetrical Cardiovascular: Rhythm Regular Respiratory: Normal Breath Sounds, No Rales, No Rhonchi, No Wheezing Gastrointestinal/Abdominal: Soft, No Tenderness, No Guarding, No Rebound, Other (obese) Extremity: Normal ROM, Calf Tenderness (right calf tenderness) Neurological/Psych: Oriented x3, Normal Speech ED Course And Treatment O2 Sat by Pulse Oximetry: 98 (RA) Pulse Ox Interpretation: Normal Medical Decision Making Medical Decision Making: Impression: Pulmonary Embolism Plan: --Heparin IV Disposition Discussed With Dr.: Tito Martinez Counseled Patient/Family Regarding: Studies Performed, Diagnosis - Disposition Disposition: HOSPITALIZED Disposition Time: 15:04 Condition: GUARDED Forms: [facility] (Pashto) - Clinical Impression Clinical Impression: Pulmonary embolism - Scribe Statement The provider has reviewed the documentation as recorded by the Mioibe Chata Jefferson Provider Attestation: All medical record entries made by the Scribe were at my direction and per sonally dictated by me. I have reviewed the chart and agree that the record accurately reflects my personal performance of the history, physical exam, medical decision making, and the department course for this patient. I have also personally directed, reviewed, and agree with the discharge instructions and disposition. Decision To Admit - Pt Status Changed To: Hospital Disposition Of: Inpatient - Admit Certification Admit to Inpatient:: After my assessment, the patient will require hospitalization for at least two midnights. This is because of the severity of symptoms shown, intensity of services needed, and/or the medical risk in this patient being treated as an outpatient. - InPatient: Physician Admission Certification: I certify that this patient requires 2 or more midnights of care for the following reason:: PE - . Bed Request Type: Telemetry Admitting Physician: Tito Martinez Patient Diagnosis: Pulmonary embolism
[2018-09-16] MEDS ORDERED: Heparin25000 units/250ml 1/2NS 25,000 UNITS/250 ML BAG IV ONE (15:30)
[2018-09-16 15:45] LABS: HEMOGLOBIN 11.6 g/dL (11.0-16.0); MEAN CELL VOLUME 71.4 fL (81.0-99.0); MEAN CORPUSCULAR HEMOGLOBIN 23.3 pg (27.0-31.0); MEAN CORPUSCULAR HGB CONC 32.6 g/dL (33.0-37.0); MEAN PLATELET VOLUME 8.8 fL (7.2-11.7); RBC 4.97 Mil/uL (3.80-5.20); WHITE BLOOD COUNT 9.4 K/uL (4.8-10.8)
[2018-09-16 15:54] LABS: INR 1.3; PROTHROMBIN TIME 14.2 SECONDS (9.7-12.2)
[2018-09-16 16:06] LABS: ALT/SGPT 12 U/L (9-52); AST/SGOT 37 U/L (14-36); BLOOD UREA NITROGEN 6 mg/dL (7-17); CALCIUM 9.1 mg/dl (8.6-10.4); GFR NON-AFRICAN AMERICAN > 60
[2018-09-16] MEDS ORDERED: Heparin25000 units/250ml 1/2NS 25,000 UNITS/250 ML BAG IV SCH (16:45)
--- NOTE | 2018-09-16 18:06 | CP.PCM.CON ---
History of Present Illness - History of Present Illness History of Present Illness: Reason for consultation: Pulmonary embolism 48-year-old female presented to emergency room for right cough tenderness, chest pain and shortness of breath yesterday and had CAT scan of the chest done which was initially read as negative and then later it was determined that findings consistent with acute on chronic pulmonary embolism. Patient started on IV heparin. Denies cough, denies fever chills. Patient main complaint at this point is right cough pain and tenderness Denies any recent long flight, denies any trauma or recent surgery Review of Systems - Review of Systems All systems: reviewed and no additional remarkable complaints except (Calf pain, chest pain and shortness of breath) Past Patient History - Past Social History Smoking Status: Never Smoked - CARDIAC Hx Hypertension: Yes Hx Mitral Valve Prolapse: Yes - PULMONARY Hx Asthma: Yes - NEUROLOGICAL Hx Neurological Disorder: Yes HX Cerebrovascular Accident: Yes (x2) - HEENT Hx HEENT Problems: No - RENAL Hx Chronic Kidney Disease: No - ENDOCRINE/METABOLIC Hx Hypothyroidism: Yes - HEMATOLOGICAL/ONCOLOGICAL Hx Blood Transfusions: No - INTEGUMENTARY Hx Dermatological Problems: No - MUSCULOSKELETAL/RHEUMATOLOGICAL Hx Musculoskeletal Disorders: Yes - GASTROINTESTINAL Hx Gastrointestinal Disorders: No - GENITOURINARY/GYNECOLOGICAL Hx Genitourinary Disorders: No - PSYCHIATRIC Hx Depression: Yes Hx Substance Use: No - SURGICAL HISTORY Hx Surgeries: Yes Other/Comment: hernia surgery. - ANESTHESIA Hx Anesthesia: Yes Hx Anesthesia Reactions: No Hx Malignant Hyperthermia: No Meds Allergies/Adverse Reactions: Allergies Allergy/AdvReac Type Severity Reaction Status Date / Time ibuprofen Allergy Verified 09/16/18 14:47 Penicillins Allergy Verified 09/16/18 14:47 tramadol Allergy Verified 09/16/18 14:47 - Medications Medications: Current Medications Amlodipine Besylate (Norvasc) 5 mg PO DAILY [facility] Aspirin (Aspirin Chewable) 81 mg PO DAILY [facility] Clopidogrel Bisulfate (Plavix) 75 mg PO DAILY [facility] Famotidine (Pepcid) 20 mg PO BID [facility] Home Med (Lipitor) 30 tab .ROUTE DAILY [facility] Home Med (Synthroid) 0.75 mcg PO DAILY [facility] Home Med (Zoloft) 60 mg PO DAILY [facility] Heparin Sodium/Sodium Chloride (Heparin 99598 Units/250ml 1/2 Normal Saline) 25,000 units in 250 mls @ 17.717 mls/hr IV .[id number] [facility]; Protocol Last Admin: 09/16/18 16:00 Dose: 18 units/kg/hr, 17.717 mls/hr Metformin HCl (Glucophage) 500 mg PO BID [facility] Oxycodone/Acetaminophen (Percocet 5/325 Mg Tab) 1 tab PO Q8 PRN PRN Reason: Pain, moderate (4-7) Stop: 09/19/18 17:51 Physical Exam - Head Exam Head Exam: ATRAUMATIC, NORMOCEPHALIC - Eye Exam Eye Exam: Normal appearance - ENT Exam ENT Exam: Mucous Membranes Moist - Neck Exam Neck exam: Positive for: Normal Inspection - Respiratory Exam Respiratory Exam: Clear to Auscultation Bilateral - Cardiovascular Exam Cardiovascular Exam: REGULAR RHYTHM - GI/Abdominal Exam GI & Abdominal Exam: Normal Bowel Sounds, Soft Results - Vital Signs Recent Vital Signs: Last Vital Signs Temp 99.9 F H 09/16/18 14:49 Pulse 88 09/16/18 16:40 Resp 20 09/16/18 16:40 BP 129/90 09/16/18 16:40 Pulse Ox 96 09/16/18 16:40 - Labs Result Diagrams: 09/16/18 15:39 09/16/18 15:39 Labs: Laboratory Results - last 24 hr 09/16/18 09/16/18 09/16/18 15:39 15:39 15:39 WBC 9.4 RBC 4.97 Hgb 11.6 Hct 35.5 MCV 71.4 L MCH 23.3 L MCHC 32.6 L RDW 21.0 H Plt Count 300 MPV 8.8 PT 14.2 H INR 1.3 APTT 27 Sodium 135 Potassium 4.5 Chloride 102 Carbon Dioxide 24 Anion Gap 14 BUN 6 L Creatinine 0.7 Est GFR ( Amer) > 60 Est GFR (Non-Af Amer) > 60 Random Glucose 97 Calcium 9.1 Total Bilirubin 0.8 AST 37 H D ALT 12 Alkaline Phosphatase 73 Total Protein 8.0 Albumin 4.0 Globulin 4.0 H Albumin/Globulin Ratio 1.0 Assessment & Plan (1) Pulmonary embolism Status: Acute Comment: Continue IV heparin. Venous Doppler lower extremities. Echocardiogram
--- NOTE | 2018-09-16 22:48 | CP.PCM.HP ---
Present on Admission - Present on Admission Any Indicators Present on Admission: No Past Patient History - Past Social History Smoking Status: Never Smoked - CARDIAC Hx Hypertension: Yes Hx Mitral Valve Prolapse: Yes - PULMONARY Hx Asthma: Yes - NEUROLOGICAL Hx Neurological Disorder: Yes HX Cerebrovascular Accident: Yes (x2) - HEENT Hx HEENT Problems: No - RENAL Hx Chronic Kidney Disease: No - ENDOCRINE/METABOLIC Hx Hypothyroidism: Yes - HEMATOLOGICAL/ONCOLOGICAL Hx Blood Transfusions: No - INTEGUMENTARY Hx Dermatological Problems: No - MUSCULOSKELETAL/RHEUMATOLOGICAL Hx Musculoskeletal Disorders: Yes - GASTROINTESTINAL Hx Gastrointestinal Disorders: No - GENITOURINARY/GYNECOLOGICAL Hx Genitourinary Disorders: No - PSYCHIATRIC Hx Depression: Yes Hx Substance Use: No - SURGICAL HISTORY Hx Surgeries: Yes Other/Comment: hernia surgery. - ANESTHESIA Hx Anesthesia: Yes Hx Anesthesia Reactions: No Hx Malignant Hyperthermia: No Meds Allergies/Adverse Reactions: Allergies Allergy/AdvReac Type Severity Reaction Status Date / Time ibuprofen Allergy Verified 09/16/18 14:47 Penicillins Allergy Verified 09/16/18 14:47 tramadol Allergy Verified 09/16/18 14:47 Results - Vital Signs Recent Vital Signs: Last Vital Signs Temp 99.4 F 09/16/18 21:10 Pulse 85 09/16/18 21:10 Resp 16 09/16/18 21:10 BP 136/87 09/16/18 21:10 Pulse Ox 96 09/16/18 21:10 - Labs Result Diagrams: 09/16/18 15:39 09/16/18 15:39 Labs: Laboratory Results - last 24 hr 09/16/18 09/16/18 09/16/18 15:39 15:39 15:39 WBC 9.4 RBC 4.97 Hgb 11.6 Hct 35.5 MCV 71.4 L MCH 23.3 L MCHC 32.6 L RDW 21.0 H Plt Count 300 MPV 8.8 PT 14.2 H INR 1.3 APTT 27 Sodium 135 Potassium 4.5 Chloride 102 Carbon Dioxide 24 Anion Gap 14 BUN 6 L Creatinine 0.7 Est GFR ( Amer) > 60 Est GFR (Non-Af Amer) > 60 Random Glucose 97 Calcium 9.1 Total Bilirubin 0.8 AST 37 H D ALT 12 Alkaline Phosphatase 73 Total Protein 8.0 Albumin 4.0 Globulin 4.0 H Albumin/Globulin Ratio 1.0
[2018-09-17 03:56] LABS: BASO # 0.1 K/uL (0.0-0.2); BASO % 1.2 % (0.0-2.0); WHITE BLOOD COUNT 11.6 K/uL (4.8-10.8)
[2018-09-17 04:06] LABS: EOS # 0.2 K/uL (0.0-0.7); EOS % 1.5 % (0.0-4.0); HEMOGLOBIN 10.9 g/dL (11.0-16.0); LYMPH # 3.6 K/uL (1.0-4.3); LYMPH % 30.9 % (20.0-40.0); MEAN CELL VOLUME 70.4 fL (81.0-99.0); MEAN CORPUSCULAR HEMOGLOBIN 22.6 pg (27.0-31.0); MEAN CORPUSCULAR HGB CONC 32.1 g/dL (33.0-37.0); MEAN PLATELET VOLUME 7.9 fL (7.2-11.7); MONO # 0.8 K/uL (0.0-0.8); MONO % 7.3 % (0.0-10.0); NEUT # 6.8 K/uL (1.8-7.0); NEUT % 59.1 % (50.0-75.0); RBC 4.81 Mil/uL (3.80-5.20); RED CELL DISTRIBUTION WIDTH 20.8 % (11.5-14.5)
[2018-09-17 05:08] LABS: HEMOGLOBIN 11.2 g/dL (11.0-16.0)
[2018-09-17 05:14] LABS: MEAN CELL VOLUME 70.5 fL (81.0-99.0); MEAN CORPUSCULAR HEMOGLOBIN 22.7 pg (27.0-31.0); MEAN CORPUSCULAR HGB CONC 32.2 g/dL (33.0-37.0); MEAN PLATELET VOLUME 8.7 fL (7.2-11.7); PLATELET COUNT 268 K/uL (130-400); RBC 4.95 Mil/uL (3.80-5.20); RED CELL DISTRIBUTION WIDTH 20.8 % (11.5-14.5)
[2018-09-17] MEDS: Levothyroxine 75 MCG TAB PO SCH (06:06)
[2018-09-17 06:19] LABS: LYMPHOCYTE 34 % (20-40); MONOCYTE 7 % (0-10); NEUTROPHIL 59 % (50-75); TOTAL CELLS COUNTED 100
[2018-09-17 06:20] LABS: PLATELET ESTIMATE NORMAL (NORMAL)
[2018-09-17 08:58] VITALS: RESP 20
[2018-09-17] MEDS: Oxycodone/Acetaminophen 5/325 mg Tab PO PRN (12:12)
[2018-09-17] MEDS ORDERED: Heparin25000 units/250ml 1/2NS 25,000 UNITS/250 ML BAG IV PRN ×3 (12:30→20:35)
--- NOTE | 2018-09-17 17:23 | CP.PCM.PN ---
Subjective - Date & Time of Evaluation Date of Evaluation: 09/17/18 Time of Evaluation: 12:30 - Subjective Subjective: Patient seen and examined Denies shortness of breath, denies chest pain Patient is alert and oriented On heparin drip For ultrasound of abdomen Objective - Vital Signs/Intake and Output Vital Signs (last 24 hours): Temp Pulse Resp BP Pulse Ox 97.9 F 75 20 133/87 99 09/17/18 15:49 09/17/18 17:09 09/17/18 15:49 09/17/18 15:49 09/17/18 15:49 - Medications Medications: Current Medications Amlodipine Besylate (Norvasc) 5 mg PO DAILY [facility] Last Admin: 09/17/18 09:43 Dose: 5 mg Aspirin (Aspirin Chewable) 81 mg PO DAILY [facility] Last Admin: 09/17/18 09:43 Dose: 81 mg Clopidogrel Bisulfate (Plavix) 75 mg PO DAILY [facility] Last Admin: 09/17/18 09:42 Dose: 75 mg Famotidine (Pepcid) 20 mg PO BID [facility] Last Admin: 09/17/18 09:43 Dose: 20 mg Heparin Sodium/Sodium Chloride (Heparin 35730 Units/250ml 1/2 Normal Saline) 25,000 units in 250 mls @ 14.765 mls/hr IV .[id number] PRN; Protocol Last Admin: 09/17/18 12:42 Dose: 15 units/kg/hr, 14.765 mls/hr Levothyroxine Sodium (Synthroid) 75 mcg PO DAILY@0630 [facility] Last Admin: 09/17/18 06:06 Dose: 75 mcg Metformin HCl (Glucophage) 500 mg PO BID [facility] Last Admin: 09/17/18 09:42 Dose: 500 mg Oxycodone/Acetaminophen (Percocet 5/325 Mg Tab) 1 tab PO Q8 PRN PRN Reason: Pain, moderate (4-7) Stop: 09/19/18 17:51 Last Admin: 09/17/18 12:12 Dose: 1 tab Rosuvastatin Calcium (Crestor) 10 mg PO HS [facility] Last Admin: 09/16/18 22:01 Dose: 10 mg Sertraline HCl (Zoloft) 50 mg PO DAILY [facility] Last Admin: 09/17/18 09:43 Dose: 50 mg - Labs Labs: 09/17/18 05:05 09/16/18 15:39 PT 14.2 SECONDS (9.7-12.2) H 09/16/18 15:39 INR 1.3 09/16/18 15:39 APTT 131 SECONDS (21-34) H* D 09/17/18 07:19 - Head Exam Head Exam: ATRAUMATIC, NORMOCEPHALIC - Eye Exam Eye Exam: Normal appearance - ENT Exam ENT Exam: Mucous Membranes Moist - Neck Exam Neck Exam: Normal Inspection - Respiratory Exam Respiratory Exam: Clear to Ausculation Bilateral - Cardiovascular Exam Cardiovascular Exam: REGULAR RHYTHM - GI/Abdominal Exam GI & Abdominal Exam: Soft, Normal Bowel Sounds Assessment and Plan (1) Pulmonary embolism Assessment & Plan: Continue anticoagulation Venous Doppler lower extremities Hypercoagulable workup For ultrasound of abdomen Status: Acute
--- NOTE | 2018-09-17 23:07 | CP.PCM.PN ---
Subjective - Date & Time of Evaluation Date of Evaluation: 09/17/18 Time of Evaluation: 14:40 - Subjective Subjective: dictated Objective - Vital Signs/Intake and Output Vital Signs (last 24 hours): Temp Pulse Resp BP Pulse Ox 97.9 F 100 H 20 133/87 99 09/17/18 15:49 09/17/18 22:30 09/17/18 15:49 09/17/18 15:49 09/17/18 15:49 - Medications Medications: Current Medications Amlodipine Besylate (Norvasc) 5 mg PO DAILY [facility] Last Admin: 09/17/18 09:43 Dose: 5 mg Aspirin (Aspirin Chewable) 81 mg PO DAILY [facility] Last Admin: 09/17/18 09:43 Dose: 81 mg Clopidogrel Bisulfate (Plavix) 75 mg PO DAILY [facility] Last Admin: 09/17/18 09:42 Dose: 75 mg Famotidine (Pepcid) 20 mg PO BID [facility] Last Admin: 09/17/18 17:40 Dose: 20 mg Heparin Sodium/Sodium Chloride (Heparin 70901 Units/250ml 1/2 Normal Saline) 25,000 units in 250 mls @ 11.812 mls/hr IV .[id number] PRN; Protocol PRN Reason: TITRATE PER ORDER Last Admin: 09/17/18 21:27 Dose: 12 units/kg/hr, 11.812 mls/hr Levothyroxine Sodium (Synthroid) 75 mcg PO DAILY@0630 [facility] Last Admin: 09/17/18 06:06 Dose: 75 mcg Metformin HCl (Glucophage) 500 mg PO BID [facility] Last Admin: 09/17/18 17:40 Dose: Not Given Oxycodone/Acetaminophen (Percocet 5/325 Mg Tab) 1 tab PO Q8 PRN PRN Reason: Pain, moderate (4-7) Stop: 09/19/18 17:51 Last Admin: 09/17/18 12:12 Dose: 1 tab Rosuvastatin Calcium (Crestor) 10 mg PO HS [facility] Last Admin: 09/17/18 21:30 Dose: 10 mg Sertraline HCl (Zoloft) 50 mg PO DAILY [facility] Last Admin: 09/17/18 09:43 Dose: 50 mg - Labs Labs: 09/17/18 05:05 09/16/18 15:39 PT 14.2 SECONDS (9.7-12.2) H 09/16/18 15:39 INR 1.3 09/16/18 15:39 APTT 122 SECONDS (21-34) H* 09/17/18 19:41
[2018-09-18] MEDS ORDERED: Heparin25000 units/250ml 1/2NS 25,000 UNITS/250 ML BAG IV PRN (04:45)
[2018-09-18] MEDS: Levothyroxine 75 MCG TAB PO SCH ×2 (05:54→07:30)
[2018-09-18 07:36] LABS: BASO # 0.2 K/uL (0.0-0.2); BASO % 1.7 % (0.0-2.0); EOS # 0.1 K/uL (0.0-0.7); EOS % 1.1 % (0.0-4.0); HEMOGLOBIN 11.5 g/dL (11.0-16.0); LYMPH # 2.8 K/uL (1.0-4.3); LYMPH % 30.7 % (20.0-40.0); MEAN CELL VOLUME 70.3 fL (81.0-99.0); MEAN CORPUSCULAR HEMOGLOBIN 23.1 pg (27.0-31.0); MEAN CORPUSCULAR HGB CONC 32.9 g/dL (33.0-37.0); MEAN PLATELET VOLUME 9.3 fL (7.2-11.7); MONO # 0.6 K/uL (0.0-0.8); MONO % 6.7 % (0.0-10.0); NEUT # 5.4 K/uL (1.8-7.0); NEUT % 59.8 % (50.0-75.0); RBC 4.98 Mil/uL (3.80-5.20); RED CELL DISTRIBUTION WIDTH 20.5 % (11.5-14.5)
[2018-09-18 07:41] LABS: ALBUMIN 3.9 g/dL (3.5-5.0); ALT/SGPT 8 U/L (9-52); AST/SGOT 24 U/L (14-36); BLOOD UREA NITROGEN 9 mg/dL (7-17); CALCIUM 9.2 mg/dl (8.6-10.4); GFR NON-AFRICAN AMERICAN > 60
--- NOTE | 2018-09-18 10:22 | PN ---
DATE: 09/18/2018 SUBJECTIVE: The patient is on heparin drip and she has right calf pain. She denies any shortness of breath. No nausea or vomiting. No cough. No sore throat. PHYSICAL EXAMINATION: VITAL SIGNS: Blood pressure 112/75, pulse 109, respiratory rate 20, and temperature 98.1. GENERAL: The patient is on heparin drip and we will maintain it on heparin drip. LUNGS: Clear. CARDIOVASCULAR: S1 and S2 regular. ABDOMEN: Soft. ASSESSMENT: 1. Pulmonary embolism, rule out deep venous thrombosis of the legs. 2. Hypertension. 3. Type 2 diabetes. PLAN: We are waiting for the venous Doppler of the leg. Continue heparin and the patient will be started on oral anticoagulant today. Tito Martinez MD
--- NOTE | 2018-09-18 14:16 | HP ---
CHIEF COMPLAINT: Calf pain and dyspnea. HISTORY OF PRESENT ILLNESS: This is a 48-year-old female, well known to us with history of hypertension, hyperlipidemia, type 2 diabetes, and the patient has history of stroke about 8 years ago, and at that time, the patient was started on aspirin and Plavix. The patient has been compliant since then; and the patient was evaluated the day prior to the admission. She has right calf pain and tenderness. The patient also had some chest pain, shortness of breath, and dyspnea. The patient at that time had elevated D-dimer and a CT angio was done, which was initially reported to be negative. Later on, was read as positive and the patient was called back and the patient was hospitalized and she has been started on heparin. The patient had dyspnea at rest, dyspnea on exertion. She denies any cough, sore throat, or runny nose. She denies any polyuria, polydipsia, or polyphagia. She denies any hematuria or pyuria. She denies any sneezing, itchy eyes, or itchy nose. There is no history of tremor, fall, or loss of consciousness. There is no abdominal pain. There is no joint pain or hip pain. She denies any tingling, numbness, or paresthesia. The patient denies any history of prolonged travel. She denies any history of blood coagulation disorder in the past. She denies any history of rashes, bruises, purpurae, petechiae, or ecchymosis. The patient denies any history of dizziness or vertigo. PAST MEDICAL HISTORY: Cerebrovascular accident, mitral valve prolapse, hypertension, hyperlipidemia, type 2 diabetes, asthma, and depression. SOCIAL HISTORY: The patient is a nonsmoker, social ETOH user. CURRENT MEDICATIONS: At home, she is on aspirin, Plavix, Norvasc, metformin, Synthroid, Zoloft, Lipitor, Lasix, and Percocet. FAMILY HISTORY: Noncontributory. PHYSICAL EXAMINATION: GENERAL: A middle-aged female in no acute distress. VITAL SIGNS: Blood pressure 136/90, pulse 80, respiratory rate 20, and temperature 98. SKIN: No rashes, no bruises, no purpura, no petechiae. HEENT: Atraumatic and normocephalic. Negative jaundice. Pupils equally reactive to light and accommodation. NECK: Supple, no JVD, no lymph nodes, no thyromegaly, no carotid bruits. CHEST WALL: Bilateral symmetrical expansion. LUNGS: Clear. No rales. No rhonchi. CARDIOVASCULAR SYSTEM: S1 and S2, regular. CENTRAL NERVOUS SYSTEM: Awake, alert, and oriented x3. Cranial nerves II through XII are normal. Power 5/5 x4. Plantars are downgoing. RECTAL: Negative. GENITAL: Normal. EXTREMITIES: No clubbing or cyanosis. The right calf is swollen. ASSESSMENT: 1. Pulmonary embolism with deep vein thrombosis. 2. Hypertension. 3. Cerebral atherosclerosis. 4. Hyperlipidemia. 5. Diabetes. PLAN: Admit. Detailed orders are written. The patient has been started on heparin drip. She will have a pulmonary consultation and . We will evaluate the oral anticoagulant therapy on the patient and the patient will be treated stabilized. Tito Martinez MD
--- NOTE | 2018-09-18 14:43 | VASCLAB ---
Date of service: 09/18/2018 PROCEDURE: Lower Extremity Venous Duplex Exam. HISTORY: r/o DVT PRIORS: None. TECHNIQUE: Bilateral common femoral, femoral, popliteal and posterior tibial, peroneal and great saphenous veins were evaluated. Flow was assessed with color Doppler, compressibility, assessment of phasic flow and augmentation response. Report prepared by Tray Villa, BS, RVT FINDINGS: RIGHT: 1. Common Femoral Vein: 1.1. Compressibility - Fully compressible: Thrombus - None : Flow - Phasic: Augmentation -Normal: Reflux - None. 2. Femoral Vein: 2.1. Compressibility - Fully compressible: Thrombus - None : Flow - Phasic: Augmentation -Normal: Reflux - None. 3. Popliteal Vein: 3.1. Compressibility - Fully compressible: Thrombus - None : Flow - Phasic: Augmentation -Normal: Reflux - None. 4. Posterior Tibial Vein: 4.1. Compressibility - Fully compressible: Thrombus - None: Flow - Phasic: Augmentation -Normal: Reflux - None. 5. Peroneal Vein: 5.1. Compressibility - Fully compressible: Thrombus - None: Flow - Phasic: Augmentation -Normal: Reflux - None. 6. Great Saphenous Vein: 6.1. Compressibility - Fully compressible: Thrombus - None: Flow - Phasic: Augmentation - Normal: Reflux - None. LEFT: 1. Common Femoral Vein: 1.1. Compressibility - Fully compressible: Thrombus - None: Flow - Phasic: Augmentation -Normal: Reflux - None. 2. Femoral Vein: 2.1. Compressibility - Fully compressible: Thrombus - None: Flow - Phasic: Augmentation -Normal: Reflux - None. 3. Popliteal Vein: 3.1. Compressibility - Fully compressible: Thrombus - None : Flow - Phasic: Augmentation -Normal: Reflux - None. 4. Posterior Tibial Vein: 4.1. Compressibility - Fully compressible: Thrombus - None: Flow - Phasic: Augmentation -Normal: Reflux - None. 5. Peroneal Vein: 5.1. Compressibility - Fully compressible: Thrombus - None: Flow - Phasic: Augmentation -Normal: Reflux - None. 6. Great Saphenous Vein: 6.1. Compressibility - Fully compressible: Thrombus - None: Flow - Phasic: Augmentation - Normal: Reflux - None. OTHER FINDINGS: Right: None significant. Left: None significant. IMPRESSION: Right: No evidence of deep or superficial vein thrombosis of the right lower extremity. Normal valve function noted of the right side. Left: No evidence of deep or superficial vein thrombosis of the left lower extremity. Normal valve function noted of the left side.
--- NOTE | 2018-09-18 14:48 | US ---
Date of service: 09/17/2018 HISTORY: liver cyst COMPARISON: None. TECHNIQUE: Grayscale imaging was performed. FINDINGS: LIVER: Measures 12.5 cm. There is diffuse increased echogenicity of the liver parenchyma. No mass. No intrahepatic bile duct dilatation. GALLBLADDER: There are no gallstones, wall thickening or pericholecystic fluid. The sonographic Landeros's sign is negative. COMMON BILE DUCT: Measures 3.2 mm. No stones. No dilatation. PANCREAS: Unremarkable as visualized. No mass. No ductal dilatation. RIGHT KIDNEY: Measures 9.1cm. Normal echogenicity. No calculus, mass, or hydronephrosis. LEFT KIDNEY: Measures 10.0cm. Normal echogenicity. No calculus, mass, or hydronephrosis. SPLEEN: Normal in size and contour. No mass. AORTA: No aneurysmal dilatation. IVC: Unremarkable. OTHER FINDINGS: None. IMPRESSION: Fatty liver. No other sonographic abnormality in the liver. No cholelithiasis or biliary dilatation.
--- NOTE | 2018-09-18 15:41 | CP.PCM.PN ---
Subjective - Date & Time of Evaluation Date of Evaluation: 09/18/18 Time of Evaluation: 12:20 - Subjective Subjective: Patient seen and examined Complaining of shortness of breath and wheezing Afebrile On heparin drip Venous Doppler negative for DVT Denies any chest pain Objective - Vital Signs/Intake and Output Vital Signs (last 24 hours): Temp Pulse Resp BP Pulse Ox 98.6 F 95 H 20 122/84 98 09/18/18 07:40 09/18/18 07:40 09/18/18 07:40 09/18/18 07:40 09/18/18 07:40 Intake and Output: 09/18/18 09/18/18 06:59 18:59 Intake Total 120 Balance 120 - Medications Medications: Current Medications Albuterol/Ipratropium (Duoneb 3 Mg/0.5 Mg (3 Ml) Ud) 3 ml INH RQ6 [facility] Amlodipine Besylate (Norvasc) 5 mg PO DAILY [facility] Last Admin: 09/18/18 09:37 Dose: 5 mg Apixaban (Eliquis) 10 mg PO Q12 [facility] Aspirin (Aspirin Chewable) 81 mg PO DAILY [facility] Last Admin: 09/18/18 09:37 Dose: 81 mg Famotidine (Pepcid) 20 mg PO BID [facility] Last Admin: 09/18/18 09:37 Dose: 20 mg Levothyroxine Sodium (Synthroid) 75 mcg PO DAILY@0630 [facility] Last Admin: 09/18/18 07:30 Dose: Not Given Metformin HCl (Glucophage) 500 mg PO BID [facility] Last Admin: 09/18/18 09:36 Dose: 500 mg Oxycodone/Acetaminophen (Percocet 5/325 Mg Tab) 1 tab PO Q8 PRN PRN Reason: Pain, moderate (4-7) Stop: 09/19/18 17:51 Last Admin: 09/17/18 12:12 Dose: 1 tab Rosuvastatin Calcium (Crestor) 10 mg PO HS [facility] Last Admin: 09/17/18 21:30 Dose: 10 mg Sertraline HCl (Zoloft) 50 mg PO DAILY [facility] Last Admin: 09/18/18 09:36 Dose: Not Given - Labs Labs: 09/18/18 07:15 09/18/18 07:15 PT 14.2 SECONDS (9.7-12.2) H 09/16/18 15:39 INR 1.3 09/16/18 15:39 APTT 64 SECONDS (21-34) H D 09/18/18 11:41 - Head Exam Head Exam: ATRAUMATIC, NORMOCEPHALIC - ENT Exam ENT Exam: Mucous Membranes Moist - Neck Exam Neck Exam: Normal Inspection - Respiratory Exam Respiratory Exam: Clear to Ausculation Bilateral - Cardiovascular Exam Cardiovascular Exam: REGULAR RHYTHM - GI/Abdominal Exam GI & Abdominal Exam: Soft, Normal Bowel Sounds Assessment and Plan (1) Pulmonary embolism Assessment & Plan: Switch to Eliquis Start nebulizer treatment Echocardiogram Status: Acute (2) Asthma Status: Acute
[2018-09-18] MEDS: Albuterol-Ipratrop 3 mg / 0.5 (3 ml) UD INH SCH (19:53)
[2018-09-18] MEDS: Oxycodone/Acetaminophen 5/325 mg Tab PO PRN (20:03)
--- NOTE | 2018-09-18 22:07 | CP.PCM.PN ---
Subjective - Date & Time of Evaluation Date of Evaluation: 09/18/18 Time of Evaluation: 08:00 - Subjective Subjective: dictated Objective - Vital Signs/Intake and Output Vital Signs (last 24 hours): Temp Pulse Resp BP Pulse Ox 99 F 106 H 20 135/92 H 96 09/18/18 15:00 09/18/18 19:54 09/18/18 15:00 09/18/18 15:00 09/18/18 15:00 - Medications Medications: Current Medications Albuterol/Ipratropium (Duoneb 3 Mg/0.5 Mg (3 Ml) Ud) 3 ml INH RQ6 [facility] Last Admin: 09/18/18 19:53 Dose: 3 ml Amlodipine Besylate (Norvasc) 5 mg PO DAILY [facility] Last Admin: 09/18/18 09:37 Dose: 5 mg Apixaban (Eliquis) 10 mg PO Q12 [facility] Last Admin: 09/18/18 17:26 Dose: 10 mg Aspirin (Aspirin Chewable) 81 mg PO DAILY [facility] Last Admin: 09/18/18 09:37 Dose: 81 mg Famotidine (Pepcid) 20 mg PO BID [facility] Last Admin: 09/18/18 17:26 Dose: 20 mg Levothyroxine Sodium (Synthroid) 75 mcg PO DAILY@0630 [facility] Last Admin: 09/18/18 07:30 Dose: Not Given Metformin HCl (Glucophage) 500 mg PO BID [facility] Last Admin: 09/18/18 17:26 Dose: 500 mg Oxycodone/Acetaminophen (Percocet 5/325 Mg Tab) 1 tab PO Q8 PRN PRN Reason: Pain, moderate (4-7) Stop: 09/19/18 17:51 Last Admin: 09/18/18 20:03 Dose: 1 tab Rosuvastatin Calcium (Crestor) 10 mg PO HS [facility] Last Admin: 09/17/18 21:30 Dose: 10 mg Sertraline HCl (Zoloft) 50 mg PO DAILY [facility] Last Admin: 09/18/18 09:36 Dose: Not Given - Labs Labs: 09/18/18 07:15 09/18/18 07:15 PT 14.2 SECONDS (9.7-12.2) H 09/16/18 15:39 INR 1.3 09/16/18 15:39 APTT 64 SECONDS (21-34) H D 09/18/18 11:41
[2018-09-19] MEDS: Albuterol-Ipratrop 3 mg / 0.5 (3 ml) UD INH SCH ×2 (01:24→09:01)
[2018-09-19] MEDS: Levothyroxine 75 MCG TAB PO SCH (05:49)
[2018-09-19 08:01] VITALS: BP 114/74; PULSE 103; TEMP 98.3; O2SAT 96
--- NOTE | 2018-09-19 10:34 | PN ---
DATE: 09/19/2018 SUBJECTIVE: The patient is feeling better. She has been switched over to Eliquis. Heparin has been discontinued. PHYSICAL EXAMINATION: VITAL SIGNS: Blood pressure 133/87, pulse rate of 75, respiratory rate 20, temperature 97.9. LUNGS: Clear. CARDIOVASCULAR SYSTEM: S1, S2 regular. ABDOMEN: Soft. ASSESSMENT: Pulmonary embolism. PLAN: Eliquis, possible discharge in the a.m. Tito Martinez MD
--- NOTE | 2018-09-19 17:14 | CP.PCM.PN ---
Subjective - Date & Time of Evaluation Date of Evaluation: 09/19/18 Time of Evaluation: 11:00 - Subjective Subjective: patient seen today, denies any chest pain , sob, dizziness, c/o r LE calf pain vss and labs reviewed - stable Objective - Vital Signs/Intake and Output Vital Signs (last 24 hours): Temp Pulse Resp BP Pulse Ox 98.3 F 103 H 20 114/74 96 09/19/18 07:35 09/19/18 07:35 09/19/18 07:35 09/19/18 07:35 09/19/18 07:35 - Labs Labs: 09/18/18 07:15 09/18/18 07:15 PT 14.2 SECONDS (9.7-12.2) H 09/16/18 15:39 INR 1.3 09/16/18 15:39 APTT 64 SECONDS (21-34) H D 09/18/18 11:41 Assessment and Plan - Assessment and Plan (Free Text) Assessment: A/P 48 yr old female with pmhx of Asthma, Depression, , HTN, Hypothyroidism, admitted with PE duplex b/l-LE - negative for DVT echo done today- Result pending started on heparin drip and switch to eliquis yesterday and tolerated seen by Dr. valladares cleared for discharge home today frompul. standpoint discussed with Dr. diaz cleared for discharge home today continue eliquis 10 mg po bid x 7 days tehn 5 mg po bid Discharge plan discussed with patient who understands and agrees witih plan
--- NOTE | 2018-09-19 21:44 | CP.PCM.DIS ---
Provider - Provider Date of Admission: 09/16/18 15:07 Attending physician: Tito Martinez MD Consults: 09/16/18 17:52 Pulmonology Consult Routine Comment: Consulting Provider: Bacilio Brizuela Consulting Physician: Bacilio Brizuela Reason for Consult: PE, DVT Time Spent in preparation of Discharge (in minutes): 30 Hospital Course - Lab Results Lab Results: Most Recent Lab Values WBC 9.0 K/uL (4.8-10.8) 09/18/18 07:15 RBC 4.98 Mil/uL (3.80-5.20) 09/18/18 07:15 Hgb 11.5 g/dL (11.0-16.0) 09/18/18 07:15 Hct 35.0 % (34.0-47.0) 09/18/18 07:15 MCV 70.3 fL (81.0-99.0) L 09/18/18 07:15 MCH 23.1 pg (27.0-31.0) L 09/18/18 07:15 MCHC 32.9 g/dL (33.0-37.0) L 09/18/18 07:15 RDW 20.5 % (11.5-14.5) H 09/18/18 07:15 Plt Count 289 K/uL (130-400) 09/18/18 07:15 MPV 9.3 fL (7.2-11.7) 09/18/18 07:15 Neut % (Auto) 59.8 % (50.0-75.0) 09/18/18 07:15 Lymph % (Auto) 30.7 % (20.0-40.0) 09/18/18 07:15 Perry % (Auto) 6.7 % (0.0-10.0) 09/18/18 07:15 Eos % (Auto) 1.1 % (0.0-4.0) 09/18/18 07:15 Baso % (Auto) 1.7 % (0.0-2.0) 09/18/18 07:15 Neut # (Auto) 5.4 K/uL (1.8-7.0) 09/18/18 07:15 Lymph # (Auto) 2.8 K/uL (1.0-4.3) 09/18/18 07:15 Perry # (Auto) 0.6 K/uL (0.0-0.8) 09/18/18 07:15 Eos # (Auto) 0.1 K/uL (0.0-0.7) 09/18/18 07:15 Baso # (Auto) 0.2 K/uL (0.0-0.2) 09/18/18 07:15 Neutrophils % (Manual) 59 % (50-75) 09/17/18 05:05 Lymphocytes % (Manual) 34 % (20-40) 09/17/18 05:05 Monocytes % (Manual) 7 % (0-10) 09/17/18 05:05 Platelet Estimate Normal (NORMAL) 09/17/18 05:05 PT 14.2 SECONDS (9.7-12.2) H 09/16/18 15:39 INR 1.3 09/16/18 15:39 APTT 64 SECONDS (21-34) H D 09/18/18 11:41 Sodium 133 mmol/L (132-148) 09/18/18 07:15 Potassium 4.1 mmol/L (3.6-5.2) 09/18/18 07:15 Chloride 102 mmol/L (98-107) 09/18/18 07:15 Carbon Dioxide 22 mmol/L (22-30) 09/18/18 07:15 Anion Gap 12 (10-20) 09/18/18 07:15 BUN 9 mg/dL (7-17) 09/18/18 07:15 Creatinine 0.7 mg/dL (0.7-1.2) 09/18/18 07:15 Est GFR ( Amer) > 60 09/18/18 07:15 Est GFR (Non-Af Amer) > 60 09/18/18 07:15 POC Glucose (mg/dL) 110 mg/dL (65-110) 09/18/18 21:42 Random Glucose 104 mg/dL (65-105) 09/18/18 07:15 Calcium 9.2 mg/dl (8.6-10.4) 09/18/18 07:15 Total Bilirubin 0.4 mg/dL (0.2-1.3) 09/18/18 07:15 AST 24 U/L (14-36) 09/18/18 07:15 ALT 8 U/L (9-52) L D 09/18/18 07:15 Alkaline Phosphatase 82 U/L (38-126) 09/18/18 07:15 Total Protein 7.7 g/dL (6.3-8.3) 09/18/18 07:15 Albumin 3.9 g/dL (3.5-5.0) 09/18/18 07:15 Globulin 3.8 gm/dL (2.2-3.9) 09/18/18 07:15 Albumin/Globulin Ratio 1.0 (1.0-2.1) 09/18/18 07:15 Discharge Exam - Head Exam Head Exam: ATRAUMATIC, NORMOCEPHALIC Discharge Plan - Discharge Medications Prescriptions: Apixaban [Eliquis] 5 mg PO BID #60 tablet Apixaban [Eliquis] 10 mg PO Q12 #12 tab Famotidine [Pepcid] 20 mg PO BID #30 tab - Follow Up Plan Condition: GUARDED Disposition: HOME/ ROUTINE Instructions: Heart Healthy Diet, Pulmonary Embolism (Blood Clot in the Lungs) (DC), Apixaban, Famotidine Additional Instructions: Please follow up with Dr. Martinez office Please continue eliquis 10 mg po x bid x 7 days( started on 09/18/17 ) then 5 mg po bid STARTS ON Please stop taking plavix can continue with aspirin Referrals: Tito Martinez MD [Staff Provider] -
--- NOTE | 2018-09-20 05:55 | DS ---
DISCHARGE DIAGNOSES: Pulmonary embolism, hypertension, cerebral atherosclerosis, hyperlipidemia, diabetes type 2. HISTORY OF PRESENT ILLNESS: A 48-year-old female with history of type 2 diabetes, hypertension, hyperlipidemia, and stroke in 2011, who came in because of right calf swelling pain. Along with that, she has some dyspnea and cough. She denied any nausea or vomiting. She was admitted to the floor and CT of the chest with repeat protocol was positive for pulmonary embolism, and she was started on heparin and switched over to Eliquis, and she is for discharge. Condition upon discharge is stable. She will be followed up by me as outpatient. She will be maintained on Eliquis for at least six months. Tito Martinez MD
--- NOTE | 2018-09-20 06:36 | PN ---
DATE: 09/19/2018 SUBJECTIVE: The patient has less chest pain, less shortness of breath. She has been on heparin drip. No fever. No chills. No nausea or vomiting. PHYSICAL EXAMINATION: VITAL SIGNS: Blood pressure 133/87, pulse 75, respiratory rate 20, and temperature 97.9. LUNGS: Clear. CARDIOVASCULAR: S1 and S2 regular. ABDOMEN: Soft. ASSESSMENT: 1. Pulmonary embolism. 2. Hypertension. 3. Cerebral atherosclerosis. 4. Hyperlipidemia. PLAN: Medical management. Continue heparin. Tito Martinez MD
--- NOTE | 2018-09-20 14:39 | CARD ---
APPROVED REPORT Date of service: 09/19/2018 EXAM: Two-dimensional and M-mode echocardiogram with Doppler and color Doppler. INDICATION Pulmonary Embolism Chest Pain mvp /asthma RISK FACTORS Hypertension 2D DIMENSIONS IVSd0.9 (0.7-1.1cm)LVDd4.3 (3.9-5.9cm) PWd0.8 (0.7-1.1cm)LA [id number] (18-58mL) LVDs2.7 (2.5-4.0cm)FS (%) 36.2 % LVEF (%)66.1 (>50%)LVEF (Galaviz's)62.72 % M-Mode DIMENSIONS Left Atrium (MM)4.27 (2.5-4.0cm)IVSd0.79 (0.7-1.1cm) Aortic Root2.77 (2.2-3.7cm)LVDd5.00 (4.0-5.6cm) Aortic Cusp Exc.2.05 (1.5-2.0cm)PWd0.68 (0.7-1.1cm) FS (%) 38 %LVDs3.12 (2.0-3.8cm) LVEF (%)67 (>50%) Mitral Valve MV E Zqdmcckl84.3cm/sMV A Dpnirmdr08.4cm/sE/A ratio0.8 TDI Lateral E' Peak V9.06cm/sMedial E' Peak V6.80cm/sE/Lateral E'7.8 E/Medial E'10.3 Tricuspid Valve TR Peak Alcsdvrh399iv/sTR Peak Gr.[id number] LEFT VENTRICLE The left ventricle is normal size. There is normal left ventricular wall thickness. The left ventricular function is normal. The left ventricular ejection fraction is within the normal range. No regional wall motion abnormalities noted. The left ventricular diastolic function is normal. No left ventricle thrombus noted on this study. There is no ventricular septal defect visualized. There is no left ventricular aneurysm. There is no mass noted in the left ventricle. RIGHT VENTRICLE The right ventricle is normal size. There is normal right ventricular wall thickness. The right ventricular systolic function is normal. ATRIA The left atrium size is normal. The right atrium size is normal. The interatrial septum is intact with no evidence for an atrial septal defect. AORTIC VALVE The aortic valve is normal in structure and function. No aortic regurgitation is present. There is no aortic valvular stenosis. There is no aortic valvular vegetation. MITRAL VALVE The mitral valve is normal in structure and function. There is no evidence of mitral valve prolapse. There is no mitral valve stenosis. There is no mitral valve regurgitation noted. TRICUSPID VALVE The tricuspid valve is normal in structure and function. There is mild tricuspid regurgitation. Right ventricular systolic pressure is estimated at less than 30 mmHg. There is no pulmonary hypertension. There is no tricuspid valve prolapse or vegetation. There is no tricuspid valve stenosis. PULMONIC VALVE The pulmonary valve is normal in structure and function. There is no pulmonic valvular regurgitation. There is no pulmonic valvular stenosis. GREAT VESSELS The aortic root is normal in size. The ascending aorta is normal in size. The pulmonary artery is normal. The IVC is normal in size and collapses >50% with inspiration. PERICARDIAL EFFUSION The pericardium appears normal. There is no pleural effusion. <Conclusion> The left ventricular function is normal. The left ventricular ejection fraction is within the normal range. No regional wall motion abnormalities noted. The aortic valve is normal in structure and function. The mitral valve is normal in structure and function. There is mild tricuspid regurgitation. Right ventricular systolic pressure is estimated at less than 30 mmHg. There is no pulmonary hypertension.
== END 2018-09-19 13:35 | disposition home or self-care (01) | DRG 176 ==
LOC: C.ER 14:26 → C.9E 15:07 → C.6T 22:17
PROVIDERS: ADMIT Internal Medicine; ATTEND Internal Medicine
DX: I26.99 Other pulmonary embolism without acute cor pulmonale (principal); I10 Essential (primary) hypertension; I27.82 Chronic pulmonary embolism; E03.9 Hypothyroidism, unspecified; E11.9 Type 2 diabetes mellitus without complications; I34.1 Nonrheumatic mitral (valve) prolapse; I67.2 Cerebral atherosclerosis; J45.909 Unspecified asthma, uncomplicated; R79.1 Abnormal coagulation profile; E78.5 Hyperlipidemia, unspecified; M79.7 Fibromyalgia; Z86.73 Personal history of transient ischemic attack (TIA), and cerebral infarction without residual deficits